=== PATIENT | male | born 1960 | race Caucasian/White ===

== ENCOUNTER → 2019-09-08 | Outpatient (CLI) | payer OTHER ==
[~2019-09-08] MED LIST: REGADENOSON 0.4 MG/5 ML SYRINGE IV ONE
--- NOTE | 2019-09-08 11:16 | ECHOF ---
Referral Reason:I10 Hypertension MEASUREMENTS -------- HEIGHT: 172.7 cm WEIGHT: 83.9 kg BP: 173/84 RVIDd: 2.9 cm (< 3.3) IVSd: 1.3 cm (0.6 - 1.1) LVIDd: 4.5 cm (3.9 - 5.3) LVPWd: 1.3 cm (0.6 - 1.1) IVSs: 1.8 cm LVIDs: 3.1 cm LVPWs: 1.9 cm LA Diam: 3.5 cm (2.7 - 3.8) LAESV Index (A-L): 15.25 ml/m Ao Diam: 3.2 cm (2.0 - 3.7) AV Cusp: 2.1 cm (1.5 - 2.6) MV EXCURSION: 14.230 mm (> 18.000) MV EF SLOPE: 55 mm/s (70 - 150) EPSS: 1.0 cm MV E Jayden: 0.49 m/s MV DecT: 89 ms MV A Jayden: 0.98 m/s MV E/A Ratio: 0.50 AR PHT: 838 ms FINDINGS -------- Sinus rhythm. This was a technically adequate study. The left ventricular size is normal. There is mild concentric left ventricular hypertrophy. Overa ll left ventricular systolic function is normal with, an EF between 55 - 60 %. The right ventricle is normal in size. Normal LA size by volume 22+/-6 ml/m2. The right atrial size is normal. Interatrial and interventricular septum intact. The aortic valve is trileaflet and appears structurally normal. There is mild aortic regurgitation. The mitral valve is normal. There is trace to mild mitral regurgitation. The tricuspid valve appears structurally normal. Mild tricuspid regurgitation present. Unable to estimate RVSP due to inadequate TR jet spectral doppler profile. There is no pulmonic regurgitation present. The aortic root size is normal. IVC Not well visulized. There is no pericardial effusion. CONCLUSIONS -------- 1. There is mild concentric left ventricular hypertrophy. 2. Overall left ventricular systolic function is normal with, an EF between 55 - 60 %. 3. Normal LA size by volume 22+/-6 ml/m2. 4. The aortic valve is trileaflet and appears structurally normal. 5. There is mild aortic regurgitation. 6. There is trace to mild mitral regurgitation. 7. Mild tricuspid regurgitation present. 8. There is no pericardial effusion. CARTON FILLER: Stefanie Atkins RDCS
--- NOTE | 2019-09-08 11:39 | NM ---
EXAMINATION TYPE: NM stress lexiscan cardiolite DATE OF EXAM: 09/08/2019 COMPARISON: NONE HISTORY: Pain TECHNIQUE: After the intravenous administration of 10.53 mCi Tc 99m Sestamibi - Cardiolite resting S PECT images acquired 50 minutes post injection. The patient received 0.4mg Lexiscan, 25.9 mCi Tc 99m Sestamibi - Stress images obtained [address] injection FINDINGS: Review of stress and rest SPECT images demonstrates fixed defect inferior wall which may reflect prio r insult versus attenuation artifact. There is worsening decreased perfusion involving the cardiac ap ex on stress images and stress-induced ischemia is not excluded. Gated analysis shows normal wall mot ion with an estimated left ventricular ejection fraction of 53 %. IMPRESSION: Correlate for stress-induced ischemia involving the cardiac apex.
--- NOTE | 2019-09-08 13:21 | EST ---
EXERCISE STRESS AGE: 59 SEX: M HT: 68" WT: 185 lbs. PROTOCOL: Lexiscan Cardiolite STAGE: DURATION OF EXERCISE: HEART RATE REST: 93 BLOOD PRESSURE REST: 160/71 MAXIMUM HEART RATE ACHIEVED: 116 MAXIMUM BLOOD PRESSURE: 169/81 85% MPHR: 136 100% MPHR: 160 METS: INDICATIONS: Hypertension CLINICAL INFORMATION: Baseline rhythm is sinus mechanism, rate of 93, normal axis and intervals, nonspecific ST-T wave changes. Baseline blood pressure of 160/71 mmHg. Patient received injection of Lexiscan. Electrocardiograph monitoring revealed occasional PVCs. There was no evidence of diagnostic ischemic ST deviation. Cardiolite was injected per protocol. CONCLUSION: 1. Nondiagnostic electrocardiograph stress testing. 2. Nuclear images will be reported separately. MMODL / IJN: [id number] /
== END | disposition home or self-care (01) ==
LOC: RADNMMAIN 08:54
PROVIDERS: ATTEND Family Medicine
DX: I08.3 Combined rheumatic disorders of mitral, aortic and tricuspid valves (principal); I10 Essential (primary) hypertension
CPT/HCPCS: 93017; 93306; 78452; A9500; J2785

== ENCOUNTER → 2019-10-07 | Outpatient (CLI) | payer OTHER ==
[2019-10-07 13:10] LABS: HCT 48.8 % (39.0-53.0); HGB 15.7 gm/dL (13.0-17.5); MCH 31.2 pg (25.0-35.0); MCHC 32.1 g/dL (31.0-37.0); Mean Platelet Volume 6.6; Platelet Count 360 k/uL (150-450); RBC 5.03 m/uL (4.30-5.90); RDW 12.9 % (11.5-15.5)
[2019-10-07 13:16] LABS: Potassium 4.4 mmol/L (3.5-5.1)
== END | disposition home or self-care (01) ==
LOC: LABPAT 12:34
PROVIDERS: ATTEND Internal Medicine Interventional Cardiology
DX: Z01.818 Encounter for other preprocedural examination (principal); R06.02 Shortness of breath
CPT/HCPCS: 36415; 80051; 82565; 84520; 85027

== ENCOUNTER 2019-10-11 09:23 | Day surgery (SDC) | payer OTHER ==
[2019-10-05 11:26] VITALS: BMI 28.1
[~2019-10-11 09:23] MED LIST changes: +ALPRAZolam 0.25 MG TAB PO PRN; +ALPRAZolam 0.5 MG TAB PO PRN; +ASPIRIN 325 MG TAB PO STA; +ATORVASTATIN 80 MG TAB PO STA; +NITROGLYCERIN SL TABS 0.4 MG TAB SUBLINGUAL PRN; -REGADENOSON 0.4 MG/5 ML SYRINGE IV ONE; +SODIUM CHLORIDE 0.9% 1,000 ML in EMPTY BAG 1 BAG IV ONE
[2019-10-11 10:02] VITALS: RESP 16; TEMP 97.5
[2019-10-11] MEDS ORDERED: SODIUM CHLORIDE 0.9% 1,000 ML IV ONE (10:02)
[2019-10-11] MEDS ORDERED: LIDOCAINE 1% INJ 10MG/ML (20 ML MDV) ONE (10:05)
[2019-10-11] MEDS ORDERED: HEPARIN SODIUM 1,000 UN/ML (10ML VL) ONE (10:05)
[2019-10-11] MEDS ORDERED: VERAPAMIL 2.5 MG/ML 2 ML AMP ONE (10:05)
[2019-10-11] MEDS ORDERED: fentaNYL (PF) 50 MCG/ML 2 ML AMP IVP ONE (10:53)
[2019-10-11] MEDS ORDERED: MIDAZOLAM 2 MG/2 ML VIAL IVP ONE ×2 (10:53→10:55)
[2019-10-11] MEDS ORDERED: LIDOCAINE 1% INJ 10MG/ML (20 ML MDV) SQ ONE (10:54)
[2019-10-11] MEDS ORDERED: fentaNYL (PF) 50 MCG/ML 2 ML AMP ONE (10:55)
[2019-10-11] MEDS: VERAPAMIL SYRINGE (5 MG/10 ML) INTRAARTER ONE ×2 (10:55→11:08)
[2019-10-11] MEDS ORDERED: HEPARIN SODIUM 1,000 UN/ML (10ML VL) IV ONE (11:01)
[2019-10-11] MEDS ORDERED: IOPAMIDOL-370 125ML BTL INJ ONE (11:08)
[2019-10-11] MEDS ORDERED: RX INFO: IV CONTRAST WAS GIVEN 1 EACH MISC MISCELLANE PRN (11:17)
[2019-10-11] MEDS ORDERED: SODIUM CHLORIDE 0.9% 1,000 ML IV SCH (11:30)
--- NOTE | 2019-10-11 12:55 | CC ---
CARDIAC CATHETERIZATION REPORT DATE OF SERVICE: October 11, 2019 PERFORMING PHYSICIAN: Gus Wilson MD. PROCEDURE PERFORMED: 1. Selective right and left coronary angiogram. 2. Left heart catheterization. INDICATION: This is a very pleasant 59-year-old gentleman with hypertension who was experiencing symptoms of chest discomfort and underwent myocardial perfusion imaging stress test and that revealed an apical ischemia. Because of that, a heart catheterization was advised. APPROACH: Right radial artery. COMPLICATION: None. LEVEL OF SEDATION: Moderate with sedation length of 15 minutes. PROCEDURE DESCRIPTION: After obtaining an informed consent, the patient was brought to the cardiac denture laboratory technician. The right radial artery was cannulated using micropuncture technique and a micropuncture wire passed easily then I placed a 6-[place] sheath in the right radial artery. At that point, I gave the patient 2 mg of verapamil IA and 10,000 units of heparin IV. Selective right and left coronary angiogram performed using JR4 and JL3.5 catheters. Left heart catheterization was performed using 6-[place] pigtail catheter. The procedure was completed without any complication. SELECTIVE CORONARY ANGIOGRAM: 1. The RCA is a large caliber vessel and is a dominant vessel. The RCA is angiographically normal. It bifurcates distally into PDA and PLV branches both appeared to be angiographically normal. 2. The left main is angiographically normal. It bifurcates into LCX and LAD. 3. The LCX is a large caliber vessel. It is a nondominant vessel. The LCX is angiographically normal. In the midportion gives rise into 3 OM branches both appeared to be angiographically normal. 4. The left anterior descending artery is a large caliber vessel. The LAD is angiographically normal. In the midportion gives rise into 2 diagonal branches, and all appeared to be angiographically normal. HEMODYNAMICS: The LVEDP is about 12-16 mmHg and no gradient was identified across the aortic valve. CONCLUSION: 1. Normal coronary angiogram. 2. Mildly elevated LVEDP. POSTPROCEDURE MANAGEMENT: 1. Medical treatment. 2. Follow up with the patient. MMODL / IJN: [id number] /
[2019-10-11 16:19] VITALS: BP 110/65; PULSE 60
== END 2019-10-11 16:21 | disposition home or self-care (01) ==
LOC: CATHCVL 09:23
PROVIDERS: ATTEND Internal Medicine Interventional Cardiology
DX: I20.0 Unstable angina (principal); I10 Essential (primary) hypertension; F17.220 Nicotine dependence, chewing tobacco, uncomplicated; Z88.2 Allergy status to sulfonamides; Z79.82 Long term (current) use of aspirin; Z79.899 Other long term (current) drug therapy; Z82.49 Family history of ischemic heart disease and other diseases of the circulatory system
CPT/HCPCS: 93458; C1769; C1894; J2250; J2001; J3010; J1644; Q9967

== ENCOUNTER → 2022-08-14 | Outpatient (CLI) | payer OTHER ==
--- NOTE | 2022-08-14 10:22 | XR ---
EXAMINATION TYPE: XR chest 2V DATE OF EXAM: 08/14/2022 COMPARISON: None INDICATION: Chest pain TECHNIQUE: Frontal and lateral views of the chest are obtained. FINDINGS: The heart size is normal. The pulmonary vasculature is normal. Some mild infiltrates silhouetting the lateral left diaphragm near the costophrenic angle. Correlate for atelectasis. IMPRESSION: 1. Minimal infiltrate at the lateral left base frontal projection. Correlate for atelectasis.
== END | disposition home or self-care (01) ==
LOC: RADXRMAIN 10:03
PROVIDERS: ATTEND Family Medicine
DX: J44.9 Chronic obstructive pulmonary disease, unspecified (principal); R91.8 Other nonspecific abnormal finding of lung field
CPT/HCPCS: 71046

== ENCOUNTER 2022-08-26 13:46 | Observation (INO) | payer OTHER ==
--- NOTE | 2022-08-26 14:33 | ED ---
SOB HPI - General Chief Complaint: Shortness of Breath Stated Complaint: SARAH Time Seen by Provider: 08/26/22 14:10 Source: patient, RN notes reviewed Mode of arrival: wheelchair Limitations: no limitations - History of Present Illness Initial Comments: This is a 62-year-old male who presents to the emergency department for shortness of breath. States that this started about a week ago. He initially saw his PCP, and states that he prescribed him with 3 inhalers, Symbicort, Spiriva, and Stioloto. Also started taking a z-pack. His PCP advised he stay in air conditioning as well. Patient states that he has been using these as instructed, however his breathing continues to worsen. Also reports chest pain, coughing, and dry heaving. Shortness of breath is worse at night and when lying flat. Denies any known history of asthma or COPD. Also denies any smoking history. Denies any fevers, chills, sore throat, palpitations, abdominal pain, diarrhea, or back pain. MD Complaint: shortness of breath, cough, chest pain Onset/Timin -: week(s) - Related Data Home Medications Medication Instructions Recorded Confirmed Felodipine [Plendil] 10 mg PO DAILY@1200 10/05/19 08/26/22 Nortriptyline [Pamelor] 50 mg PO DAILY@1200 10/05/19 08/26/22 Nortriptyline [Pamelor] 100 mg PO HS@0000 10/05/19 08/26/22 Omeprazole [PriLOSEC] 40 mg PO DAILY@1200 10/05/19 08/26/22 Azithromycin [Zithromax] See Taper PO DIRECTED 08/26/22 08/26/22 Budesonide/Formoterol Fumarate 2 puff INHALATION RT-BID@1200,0000 08/26/22 08/26/22 [Symbicort 160-4.5 Mcg Inhaler] Testosterone Cypionate 400 mg IM Q30D 08/26/22 08/26/22 [Depo-Testosterone] Tiotropium 2.5 Mcg/Puff [Spiriva 1 puff INHALATION RT-DAILY@1200 08/26/22 08/26/22 Respimat 2.5 Mcg] Tiotropium Br/Olodaterol HCl 1 puff INHALATION RT-DAILY@1800 08/26/22 08/26/22 [Stiolto Respimat Inhal [place]] Allergies Allergy/AdvReac Type Severity Reaction Status Date / Time Sulfa (Sulfonamide Allergy Rash/Hives Verified 08/26/22 17:27 Antibiotics) sulfamethoxazole Allergy Rash/Hives Verified 08/26/22 17:27 [From Bactrim] trimethoprim [From Bactrim] Allergy Rash/Hives Verified 08/26/22 17:27 Review of Systems ROS Statement: Those systems with pertinent positive or pertinent negative responses have been documented in the HPI. ROS Other: All systems not noted in ROS Statement are negative. Past Medical History Past Medical History: Chest Pain / Angina, GERD/Reflux, Hypertension, Osteoa rthritis (OA) Additional Past Medical History / Comment(s): chest pressure, fatigue History of Any Multi-Drug Resistant Organisms: None Reported Past Surgical History: Hernia Repair Past Anesthesia/Blood Transfusion Reactions: No Reported Reaction Past Psychological History: No Psychological Hx Reported Smoking Status: Never smoker Past Alcohol Use History: Occasional Past Drug Use History: None Reported General Exam Limitations: no limitations General appearance: alert, in no apparent distress Head exam: Present: atraumatic, normocephalic, normal inspection Respiratory exam: Present: normal lung sounds bilaterally. Absent: respiratory distress, wheezes, rales, rhonchi, stridor Cardiovascular Exam: Present: regular rate, normal rhythm, normal heart sounds. Absent: systolic murmur, diastolic murmur, rubs, gallop, clicks Neurological exam: Present: alert, oriented X3, CN II-XII intact Psychiatric exam: Present: normal affect, normal mood Skin exam: Present: warm, dry, intact, normal color. Absent: rash Course Vital Signs 08/26/22 08/26/22 08/26/22 13:48 14:01 14:25 Temperature 97.7 F Pulse Rate 109 H 98 Respiratory 18 22 24 Rate Blood Pressure 159/79 162/88 O2 Sat by Pulse 98 97 Oximetry 08/26/22 08/26/22 08/26/22 14:30 15:19 15:29 Temperature Pulse Rate 101 H 98 104 H Respiratory 22 Rate Blood Pressure 162/88 O2 Sat by Pulse Oximetry 08/26/22 08/26/22 08/26/22 15:41 15:51 17:03 Temperature Pulse Rate 106 H 106 H 112 H Respiratory 24 Rate Blood Pressure 151/77 O2 Sat by Pulse 99 Oximetry 08/26/22 17:10 Temperature Pulse Rate 103 H Respiratory 24 Rate Blood Pressure 137/89 O2 Sat by Pulse 98 Oximetry Medical Decision Making - Medical Decision Making This is a 62-year-old male who presents to the emergency department for difficulty breathing. Was pt. sent in by a medical professional or institution? @ -No Did you speak to anyone other than the patient for history? @ -No Did you review nursing and triage notes? @ -Yes, and I agree, it is accurate with regards to the patient's symptoms. Were old charts reviewed? @ -No Differential Diagnosis? @ -Differential Dyspnea: Coronary syndrome, arrhythmia, tamponade, asthma, COPD, pulmonary embolism, pneumonia, pneumothorax, pulmonary effusion, anaphylaxis, diabetic ketoacidosis, flailed chest, pulmonary contusion, diaphragmatic rupture, anemia, neuromuscular, this is not meant to be an all-inclusive list. EKG interpreted by me (3pts min.)? @ -EKG interpreted by me demonstrating the following: Sinus tachycardia. Ventricular rate 101 bpm, VT interval 140 ms, QRS duration 156 ms, QTC 433 ms. X-rays interpreted by me (1pt min.)? @ -Chest x-ray obtained, my interpretation identifies no localized consolid ations or infiltrates. CT interpreted by me (1pt min.)? @ -Not obtained U/S interpreted by me (1pt. min.)? @ -Not obtained What testing was considered but not performed? (CT, X-rays, U/S, labs)? Why? @ -None What meds were considered but not given? Why? @ -None Did you discuss the management of the patient with other professionals? @ -Yes, Dr. Martinez, who accepts the patient for admission. Did you reconcile home meds? @ -No Was smoking cessation discussed for >3mins.? @ -No Was critical care preformed (if so, how long)? @ -No Were there social determinants of health that impacted care today? How? (Homelessness, low income, unemployed, alcoholism, drug addiction, trans portation, low edu. Level, literacy, decrease access to med. care, usp, rehab)? @ -No Was there de-escalation of care discussed even if they declined? (Discuss DNR or withdrawal of care, Hospice)? @ -No What co-morbidities impacted this encounter? (DM, HTN, Smoking, COPD, CAD, Cancer, CVA, Hep., AIDS, mental health diagnosis, sleep apnea, morbid obesity)? @ -HTN Was patient admitted / discharged? @ -Admitted. Lab work obtained revealing erythrocytosis with a hemoglobin of 18.8 and hematocrit of 57.4. D-dimer and troponin negative. No actionable findings otherwise identified. Chest x-ray reveals mild right-sided diaphragmatic elevation, linear atelectasis at the right medial lung base, and a chronic pleural parenchymal density in the left lower lobe. He received a total of 2 DuoNeb breathing treatments. Patient had very minor improvement after each breathing treatment, but states that they wore off quickly. He continues to maintain heart rate of 100-120 bpm in the emergency department. While in the emergency department, he started to complain of headaches. He was given a dose of Toradol, which was not effective. He was then given a dose of Dilaudid, which was only moderately effective. When I went to reexamine the patient, he continued to complain that he was short of breath with chest pain. He also continued to be tachycardic. He then became very tearful and said that he was scared to go home. Patient admitted to medicine for further evaluation of shortness of breath and tachycardia. Pulmonology listed as consult. Undiagnosed new problem with uncertain prognosis? @ -None Drug Therapy requiring intensive monitoring for toxicity (Heparin, Nitro, Insulin, Cardizem)? @ -None Were any procedures done? @ -None Diagnosis/symptom? @ -Dyspnea, tachycardia, erythrocytosis Acute, or Chronic, or Acute on Chronic? @ -Acute Uncomplicated (without systemic symptoms) or Complicated (systemic symptoms)? @ -Complicated Side effects of treatment? @ -None Exacerbation, Progression, or Severe Exacerbation] @ -Not applicable Poses a threat to life or bodily function? @ -Yes This case was discussed in detail with the attending ED physician, Dr. Mack. Presentation, findings, and treatment plan discussed in detail as well. - Lab Data Result diagrams: 08/26/22 14:19 08/26/22 14:19 Lab Results 08/26/22 08/26/22 08/26/22 Range/Units 14:19 14:19 14:19 WBC 8.4 (3.8-10.6) k/uL RBC 5.72 (4.30-5.90) m/uL Hgb 18.8 H (13.0-17.5) gm/dL Hct 57.4 H* (39.0-53.0) % MCV 100.2 H (80.0-100.0) fL MCH 32.8 (25.0-35.0) pg MCHC 32.7 (31.0-37.0) g/dL RDW 14.6 (11.5-15.5) % Plt Count 238 (150-450) k/uL MPV 7.2 Neutrophils % 73 % Lymphocytes % 13 % Monocytes % 8 % Eosinophils % 5 % Basophils % 0 % Neutrophils # 6.1 (1.3-7.7) k/uL Lymphocytes # 1.1 (1.0-4.8) k/uL Monocytes # 0.7 (0-1.0) k/uL Eosinophils # 0.4 (0-0.7) k/uL Basophils # 0.0 (0-0.2) k/uL Macrocytosis Slight PT (9.0-12.0) sec INR (<1.2) APTT (22.0-30.0) sec D-Dimer (<0.60) mg/L FEU Sodium 137 (137-145) mmol/L Potassium 4.1 (3.5-5.1) mmol/L Chloride 105 (98-107) mmol/L Carbon Dioxide 18 L (22-30) mmol/L Anion Gap 14 mmol/L BUN 11 (9-20) mg/dL Creatinine 1.29 H (0.66-1.25) mg/dL Est GFR (CKD-EPI)AfAm 68 (>60 ml/min/1.73 sqM) Est GFR (CKD-EPI)NonAf 59 (>60 ml/min/1.73 sqM) Glucose 108 H (74-99) mg/dL Plasma Lactic Acid Malachi 1.9 (0.7-2.0) mmol/L Calcium 9.6 (8.4-10.2) mg/dL Total Bilirubin 0.8 (0.2-1.3) mg/dL AST 40 (17-59) U/L ALT 35 (4-49) U/L Alkaline Phosphatase 124 (38-126) U/L Troponin I (0.000-0.034) ng/mL NT-Pro-B Natriuret Pep pg/mL Total Protein 7.7 (6.3-8.2) g/dL Albumin 4.3 (3.5-5.0) g/dL Influenza Type A (PCR) (Not Detectd) Influenza Type B (PCR) (Not Detectd) RSV (PCR) (Not Detectd) SARS-CoV-2 (PCR) (Not Detectd) 08/26/22 08/26/22 08/26/22 Range/Units 14:19 14:19 14:19 WBC (3.8-10.6) k/uL RBC (4.30-5.90) m/uL Hgb (13.0-17.5) gm/dL Hct (39.0-53.0) % MCV (80.0-100.0) fL MCH (25.0-35.0) pg MCHC (31.0-37.0) g/dL RDW (11.5-15.5) % Plt Count (150-450) k/uL MPV Neutrophils % % Lymphocytes % % Monocytes % % Eosinophils % % Basophils % % Neutrophils # (1.3-7.7) k/uL Lymphocytes # (1.0-4.8) k/uL Monocytes # (0-1.0) k/uL Eosinophils # (0-0.7) k/uL Basophils # (0-0.2) k/uL Macrocytosis PT (9.0-12.0) sec INR (<1.2) APTT (22.0-30.0) sec D-Dimer (<0.60) mg/L FEU Sodium (137-145) mmol/L Potassium (3.5-5.1) mmol/L Chloride (98-107) mmol/L Carbon Dioxide (22-30) mmol/L Anion Gap mmol/L BUN (9-20) mg/dL Creatinine (0.66-1.25) mg/dL Est GFR (CKD-EPI)AfAm (>60 ml/min/1.73 sqM) Est GFR (CKD-EPI)NonAf (>60 ml/min/1.73 sqM) Glucose (74-99) mg/dL Plasma Lactic Acid Malachi (0.7-2.0) mmol/L Calcium (8.4-10.2) mg/dL Total Bilirubin (0.2-1.3) mg/dL AST (17-59) U/L ALT (4-49) U/L Alkaline Phosphatase (38-126) U/L Troponin I <0.012 (0.000-0.034) ng/mL NT-Pro-B Natriuret Pep 789 pg/mL Total Protein (6.3-8.2) g/dL Albumin (3.5-5.0) g/dL Influenza Type A (PCR) Not Detected (Not Detectd) Influenza Type B (PCR) Not Detected (Not Detectd) RSV (PCR) Not Detected (Not Detectd) SARS-CoV-2 (PCR) Not Detected (Not Detectd) 08/26/22 Range/Units 15:18 WBC (3.8-10.6) k/uL RBC (4.30-5.90) m/uL Hgb (13.0-17.5) gm/dL Hct (39.0-53.0) % MCV (80.0-100.0) fL MCH (25.0-35.0) pg MCHC (31.0-37.0) g/dL RDW (11.5-15.5) % Plt Count (150-450) k/uL MPV Neutrophils % % Lymphocytes % % Monocytes % % Eosinophils % % Basophils % % Neutrophils # (1.3-7.7) k/uL Lymphocytes # (1.0-4.8) k/uL Monocytes # (0-1.0) k/uL Eosinophils # (0-0.7) k/uL Basophils # (0-0.2) k/uL Macrocytosis PT 10.3 (9.0-12.0) sec INR 1.0 (<1.2) APTT 25.6 (22.0-30.0) sec D-Dimer <0.17 (<0.60) mg/L FEU Sodium (137-145) mmol/L Potassium (3.5-5.1) mmol/L Chloride (98-107) mmol/L Carbon Dioxide (22-30) mmol/L Anion Gap mmol/L BUN (9-20) mg/dL Creatinine (0.66-1.25) mg/dL Est GFR (CKD-EPI)AfAm (>60 ml/min/1.73 sqM) Est GFR (CKD-EPI)NonAf (>60 ml/min/1.73 sqM) Glucose (74-99) mg/dL Plasma Lactic Acid Malachi (0.7-2.0) mmol/L Calcium (8.4-10.2) mg/dL Total Bilirubin (0.2-1.3) mg/dL AST (17-59) U/L ALT (4-49) U/L Alkaline Phosphatase (38-126) U/L Troponin I (0.000-0.034) ng/mL NT-Pro-B Natriuret Pep pg/mL Total Protein (6.3-8.2) g/dL Albumin (3.5-5.0) g/dL Influenza Type A (PCR) (Not Detectd) Influenza Type B (PCR) (Not Detectd) RSV (PCR) (Not Detectd) SARS-CoV-2 (PCR) (Not Detectd) - Radiology Data Radiology results: report reviewed, image reviewed Disposition Clinical Impression: Dyspnea, Tachycardia, Erythrocytosis Disposition: ADMITTED IP TO THIS [facility] Referrals: Juan Pablo Mabry MD [Primary Care Provider] - 1-2 days
[2022-08-26 14:37] LABS: Basophils % (A) 0 %; Eosinophils # (A) 0.4 k/uL (0-0.7); Eosinophils % (A) 5 %; HGB 18.8 gm/dL (13.0-17.5); Lymphocytes # (A) 1.1 k/uL (1.0-4.8); Lymphocytes % (A) 13 %; MCH 32.8 pg (25.0-35.0); MCHC 32.7 g/dL (31.0-37.0); MCV 100.2 fL (80.0-100.0); Macrocytosis Slight; Mean Platelet Volume 7.2; Monocytes # (A) 0.7 k/uL (0-1.0); Monocytes % (A) 8 %; Neutrophils # (A) 6.1 k/uL (1.3-7.7); Neutrophils % (A) 73 %; Platelet Count 238 k/uL (150-450); RBC 5.72 m/uL (4.30-5.90); RDW 14.6 % (11.5-15.5); WBC 8.4 k/uL (3.8-10.6)
[2022-08-26 14:58] LABS: HCT 57.4 % (39.0-53.0)
[2022-08-26] MEDS ORDERED: IPRATROPIUM-ALBUTEROL 3 ML NEB INHALATION STA ×2 (15:04→15:36)
--- NOTE | 2022-08-26 15:14 | XR ---
EXAMINATION TYPE: XR chest 2V DATE OF EXAM: 08/26/2022 COMPARISON: 08/14/22 HISTORY: Shortness of breath TECHNIQUE: Frontal and lateral views of the chest are obtained. FINDINGS: Scattered senescent parenchymal changes noted. Hyperinflation compatible with COPD. Mild right-sided diaphragmatic elevation. Linear atelectasis right medial lung base. Chronic pleural- parenchymal density left lower lobe. Heart size is stable. Mediastinal structures are stable and grossly unremarkable. No evidence for hilar prominence. Degenerative changes dorsal spine. IMPRESSION: 1. Mild right-sided diaphragmatic elevation. Linear atelectasis right medial lung base. Chronic pleur al-parenchymal density left lower lobe.
[2022-08-26 15:28] LABS: ALT 35 U/L (4-49); AST 40 U/L (17-59); African American GFR (CKD) 68 (>60 ml/min/1.73 sqM); Albumin 4.3 g/dL (3.5-5.0); Alkaline Phosphatase 124 U/L (38-126); Anion Gap 14 mmol/L; Blood Urea Nitrogen 11 mg/dL (9-20); Calcium 9.6 mg/dL (8.4-10.2); Carbon Dioxide 18 mmol/L (22-30); Chloride 105 mmol/L (98-107); Glucose 108 mg/dL (74-99); Non-African American GFR(CKD) 59 (>60 ml/min/1.73 sqM); Potassium 4.1 mmol/L (3.5-5.1); Sodium 137 mmol/L (137-145); Total Bilirubin 0.8 mg/dL (0.2-1.3); Total Protein 7.7 g/dL (6.3-8.2)
[2022-08-26] MEDS ORDERED: KETOROLAC 15 MG/ML 1 ML VIAL IVP STA (15:34)
[2022-08-26 16:01] LABS: Partial Thromboplastin Time 25.6 sec (22.0-30.0); Prothrombin Time 10.3 sec (9.0-12.0)
[2022-08-26] MEDS ORDERED: HYDROmorphone 0.5 MG/0.5 ML SYRINGE IVP STA (16:58)
[2022-08-26] MEDS ORDERED: methylPREDNISolone SOD SUCCI 125 MG/2 ML VIAL IV STA ×2 (17:05→18:36)
[2022-08-26] MEDS ORDERED: NALOXONE 0.4 MG/ML 1 ML VIAL IV PRN (18:13)
[2022-08-26] MEDS ORDERED: ACETAMINOPHEN TAB 325 MG TAB PO PRN (18:13)
[2022-08-26] MEDS ORDERED: IBUPROFEN 400 MG TAB PO PRN (18:13)
[2022-08-26] MEDS ORDERED: MORPHINE SULFATE 4 MG/ML SYRINGE IV PRN (18:13)
[2022-08-26] MEDS ORDERED: KETOROLAC 15 MG/ML 1 ML VIAL IVP PRN (18:13)
[2022-08-26] MEDS ORDERED: FORMOTEROL FUMARATE 20 MCG/2 ML NEBU INHALATION SCH (20:00)
[2022-08-26] MEDS: IPRATROPIUM-ALBUTEROL 3 ML NEB INHALATION SCH (21:19)
[2022-08-26] MEDS: BUDESONIDE 1 MG/2 ML NEBU INHALATION SCH (21:21)
--- NOTE | 2022-08-26 22:14 | CT ---
EXAMINATION TYPE: CT soft tissue neck w con CT DLP: 348.3 mGycm, Automated exposure control for dose reduction was used. DATE OF EXAM: 08/26/2022 9:55 PM COMPARISON: None. CLINICAL INDICATION:Male, 62 years old with history of diff swallowing/choking in throat; PHH, dyspne a, dysphagia TECHNIQUE: Standard enhanced CT of the neck. Axial sections with coronal and sagittal reformats were obtained. Contrast used:80ml mL of Isovue 300 with IV Contrast, Oral contrast used: none. FINDINGS: Brain: Visualized portions are grossly unremarkable. Orbits: Unremarkable Sinuses: Grossly unremarkable. Spaces of the neck: The adenoids are enlarged which closely approximate the soft palate. Airway to th e oropharynx is patent. The palatine tonsils are symmetric. No evidence for lymphadenopathy. Musculoskeletal: No acute osseous pathology. Degenerative disc disease changes of the visualized spin e are present. Lymph nodes: Multiple nonenlarged lymph nodes are seen along both anterior chains of the neck. Vascular structures: Visualized major arteries are patent without evidence of aneurysm. Thoracic Inlet/airway: Airway is patent. The lung apices are clear. Soft tissues/Thyroid: Thyroid and remainder of the soft tissues are unremarkable. Other: none. IMPRESSION Narrowed airway through the nasopharynx secondary to enlargement of the adenoids in close approximati on to the soft palate. The oropharynx airway is patent. No evidence for mass. Consider barium swallow with speech pathology.
[2022-08-26] MEDS: TOPIRAMATE 25 MG TAB PO SCH (23:07)
[2022-08-26] MEDS: NORTRIPTYLINE 25 MG CAP PO SCH (23:07)
--- NOTE | 2022-08-26 23:18 | P.HPIM ---
History of Present Illness H&P Date: 08/26/22 Chief Complaint: Short of breath I'm rounding for Dr. Juan Pablo Mabry. 62-year-old patient who follows with Dr. Juan Pablo Mabry. Patient had gone to see Dr. Mabry about a week ago with some shortness of breath was given inhalers. Not responding. Patient now presents with Multiple symptoms. Has been increasingly short of breath. Occasional cough. He feels sometimes throat is swollen. Patient's had chronic headache for years which is progressively getting much worse. Occasionally gets blurry vision. He thinks he might sometimes have trouble with swallowing. Is also hurting all over. Nonsmoker. Patient rather anxious. Patient also notices a raspiness in his voice. Breathing is better after getting bronchodilators steroids. Review of systems: GEN.: Tired EYES: Occasional blurring] HEENT: Acute on chronic headache] NECK: None RESPIRATORY: As above CARDIOVASCULAR: No chest pain GASTROINTESTINAL: None GENITOURINARY: None MUSCULOSKELETAL: Joint pains LYMPHATICS: None HEMATOLOGICAL: None PSYCHIATRY: None NEUROLOGICAL: As above Past medical history to include: GERD, hypertension, osteoarthritis, Social history: Patient used to drink anywhere from 12-15 beers at night. For over 12 years. About 2 years ago patient cutback couple of beers at night. This is his ex- . Does not smoke. Retired. Physical examination: VITAL SIGNS: 97.9, 109, 18, 159/79, 98% room air GENERAL: BMI 27.4, reclining in bed anxious. EYES: Pupils equal. Conjunctiva normal. HEENT: External appearance of nose and ears normal, oral cavity grossly normal. NECK: JVD not raised; masses not palpable. HEART: First and second heart sounds are normal; no edema. LUNGS:[ Respiratory rate normal; fair entry. ABDOMEN: Soft, nontender, liver spleen not palpable, no masses palpable. PSYCH: Alert and oriented x3; mood and affect anxiousl. MUSCULOSKELETAL:No Clubbing/cyanosis;muscles-grossly intact NEUROLOGICAL: Cranial nerves grossly intact; no facial asymmetry, power and sensation grossly intact. LYMPHATICS: No lymph nodes palpable in the axilla and neck INVESTIGATIONS, reviewed in the clinical context: White count 8.4 hemoglobin 18.8 hematocrit 57.4 platelets 238 potassium 4.1 BUN 11 creatinine 1.29 Troponin I less than 0.0122 ProBNP 789 Influenza type A, type B, RSV, COVID-19: Not detected EKG tracing personally reviewed by me-heart rate 101. Right bundle-branch block. Nonspecific T-wave changes. Chest x-ray film personally reviewed by me-possibly chronic changes Computed tomography scan, soft tissue of the neck: Denies enlargement closely approximate the soft palate. Intermittent oropharynx is patent. Multiple nonenlarged lymph node seen along the anterior chain of the neck. Assessment and plan: -Possible acute asthma exacerbation and a nonsmoker. Bronchodilators. Steroids. IV. -Patient complains of change in voice and intermittent trouble swallowing. Enlarged adenoids and computed tomography scan of the neck. We will do a barium swallow. -Acute on chronic headache. Start Topamax 25 mg twice a day. Consult neurology. Computed tomography scan of the brain without and without contrast. -Possible polycythemia. IV fluids. Repeat CBC in the morning. Consult hematology. -Abnormal creatinine. IV fluids. Repeat BMP in the morning. -Anxiety Pamelor -GERD PPI -Essential hypertension Amlodipine 10 mg a day Care discussed at length with the patient. Consultation neurology. Pulmonary. Past Medical History Past Medical History: Chest Pain / Angina, GERD/Reflux, Hypertension, Osteoarthritis (OA) Additional Past Medical History / Comment(s): chest pressure, fatigue History of Any Multi-Drug Resistant Organisms: None Reported Past Surgical History: Hernia Repair Additional Past Surgical History / Comment(s): L groin hernia Past Anesthesia/Blood Transfusion Reactions: No Reported Reaction Past Psychological History: No Psychological Hx Reported Smoking Status: Never smoker Past Alcohol Use History: Occasional Additional Past Alcohol Use History / Comment(s): used to drink 6 or more beers daily, down to 2-3 beers per day Past Drug Use History: None Reported Medications and Allergies Home Medications Medication Instructions Recorded Confirmed Type Felodipine [Plendil] 10 mg PO DAILY@1200 10/05/19 08/26/22 History Nortriptyline [Pamelor] 50 mg PO DAILY@1200 10/05/19 08/26/22 History Nortriptyline [Pamelor] 100 mg PO HS@0000 10/05/19 08/26/22 History Omeprazole [PriLOSEC] 40 mg PO DAILY@1200 10/05/19 08/26/22 History Azithromycin [Zithromax] See Taper PO DIRECTED 08/26/22 08/26/22 History Budesonide/Formoterol Fumarate 2 puff INHALATION RT-BID@1200,0000 08/26/22 08/26/22 History [Symbicort 160-4.5 Mcg Inhaler] Testosterone Cypionate 400 mg IM Q30D 08/26/22 08/26/22 History [Depo-Testosterone] Tiotropium 2.5 Mcg/Puff [Spiriva 1 puff INHALATION RT-DAILY@1200 08/26/22 08/26/22 History Respimat 2.5 Mcg] Tiotropium Br/Olodaterol HCl 1 puff INHALATION RT-DAILY@1800 08/26/22 08/26/22 History [Stiolto Respimat Inhal [place]] Allergies Allergy/AdvReac Type Severity Reaction Status Date / Time Sulfa (Sulfonamide Allergy Rash/Hives Verified 08/26/22 17:27 Antibiotics) sulfamethoxazole Allergy Rash/Hives Verified 08/26/22 17:27 [From Bactrim] trimethoprim [From Bactrim] Allergy Rash/Hives Verified 08/26/22 17:27 Physical Exam Vitals: Vital Signs Temp Pulse Pulse Resp BP BP Pulse Ox 08/26/22 22:12 98.3 F 108 H 18 171/89 97 08/26/22 21:35 108 H 08/26/22 21:34 108 H 08/26/22 21:22 104 H 08/26/22 20:55 97.9 F 108 H 16 159/87 96 08/26/22 18:22 105 H 16 160/87 98 08/26/22 17:10 103 H 24 137/89 98 08/26/22 17:03 112 H 24 151/77 99 08/26/22 15:51 106 H 08/26/22 15:41 106 H 08/26/22 15:29 104 H 08/26/22 15:19 98 08/26/22 14:30 101 H 22 162/88 08/26/22 14:25 98 24 162/88 97 08/26/22 14:01 22 08/26/22 13:48 97.7 F 109 H 18 159/79 98 Intake and Output 08/26/22 08/26/22 08/27/22 14:59 22:59 06:59 Other: # Voids 2 Weight 81.647 kg 81.647 kg Results CBC & Chem 7: 08/26/22 14:19 08/26/22 14:19 Labs: Abnormal Lab Results - Last 24 Hours (Table) 08/26/22 08/26/22 Range/Units 14:19 14:19 Hgb 18.8 H (13.0-17.5) gm/dL Hct 57.4 H* (39.0-53.0) % MCV 100.2 H (80.0-100.0) fL Carbon Dioxide 18 L (22-30) mmol/L Creatinine 1.29 H (0.66-1.25) mg/dL Glucose 108 H (74-99) mg/dL Thrombosis Risk Factor Assmnt - Choose All That Apply Any of the Below Risk Factors Present?: Yes Each Factor Represents 1 point: Abnormal pulmonary function (COPD), Obesity (BMI >25) Other Risk Factors: Yes Each Risk Factor Represents 2 Points: Age 61-74 years Other congenital or acquired thrombophilia - If yes, enter type in comment: No Thrombosis Risk Factor Assessment Total Risk Factor Score: 4 Thrombosis Risk Factor Assessment Level: Moderate Risk
[2022-08-26] MEDS ORDERED: LACTULOSE 20 GM/30 ML CUP PO PRN (23:19)
[2022-08-26] MEDS ORDERED: TEMAZEPAM 15 MG CAP PO PRN (23:19)
[2022-08-26] MEDS ORDERED: LORazepam 0.5 MG TAB PO PRN (23:19)
[2022-08-26] MEDS ORDERED: CALCIUM CARBONATE 500 MG CHEWABLE PO PRN (23:19)
[2022-08-26] MEDS ORDERED: ONDANSETRON 4 MG/2 ML VIAL IVP PRN (23:19)
[2022-08-27] MEDS ORDERED: methylPREDNISolone SOD SUCCI 40 MG/ML 1 ML VIAL IV SCH
[2022-08-27] MEDS: IPRATROPIUM-ALBUTEROL 3 ML NEB INHALATION SCH ×7 (00:16→23:23)
[2022-08-27] MEDS: SODIUM CHLORIDE 0.9% 1,000 ML IV SCH ×3 (01:03→18:48)
[2022-08-27 05:23] LABS: Glucose,Whole Blood 144 mg/dL (70-110)
--- NOTE | 2022-08-27 07:48 | P.CNPUL ---
History of Present Illness Consult date: 08/27/22 Requesting physician: Kyara Matos Reason for consult: dyspnea, cough Chief complaint: Shortness of breath and cough History of present illness: I am seeing this patient in new consultation today 08/27/2022 for progressive dyspnea and persistent nonproductive cough. Patient is a 62-year-old male with past medical history significant for hypertension, GERD, osteoarthritis. Patient presented to the emergency room yesterday afternoon complaining of progressively worsening shortness of breath and a nonproductive cough that reportedly started approximately 5-6 days ago. Patient did go to his primary care provider Dr. Mabry on July for similar complaints. The patient was given a combination of Spiriva and Symbicort and sent home. There was also Stiolto along with his other inhalers. The patient did have some old azithromycin that was prescribed to him back in February,, and he did take 2 tablets before coming into the emergency room yesterday afternoon. He denies any history of asthma or COPD. He denies any smoking history. He denies any sick contacts. He denies fevers, chills, chest pain, hemoptysis. Patient is currently lying in bed, on 2 L/m nasal cannula, in no acute distress. He is oxygenating at 99%, and this could probably be weaned off. Chest x-ray on arrival showed mild right-sided diaphragmatic elevation, linear atelectasis at the right medial lung base, and chronic pleural/parenchymal density of the left lower lobe. CT of the soft tissue of the neck with contrast was ordered because of subjective feeling of throat tightness and hoarse voice, which showed a narrowed airway of the nasopharynx secondary to enlargement of the adenoids with a patent oropharynx. Patient also reports ongoing intermittent headaches and blurred vision, and a follow-up brain CTA was ordered. CBC on arrival shows an RBC count of 8.4, hemoglobin 18.8, hematocrit 57.4, platelets 238. Shows sodium 137, potassium 4.1, chloride 105, serum bicarb 18, BUN 11, creatinine 1.29, glucose 108. Normal saline is infusing at 40 mL per hour. Lactic acid level was 1.9. Troponins were low. NT proBNP 789. Negative for influenza, RSV, COVID-19. Patient is currently receiving a combination of DuoNeb's, Pulmicort, and IV Solu-Medrol. He is afebrile. Vital signs are stable. Review of Systems REVIEW OF SYSTEMS: CONSTITUTIONAL: Denies any recent significant weight loss or weight gain. EYES: Admits occasional bilateral blurred vision EARS, NOSE, MOUTH, THROAT: Admits intermittent headaches, denies sore throat. CARDIOVASCULAR: Denies chest pain, palpitations or syncopal episodes. RESPIRATORY: See HPI GASTROINTESTINAL: Denies change in appetite, abdominal pain, nausea and vomiting, or diarrhea GENITOURINARY: Denies hematuria, denies infections. MUSKULOSKELETAL: Denies pain, denies swelling. INTEGUMENTARY: Denies rash, denies eczema. NEUROLOGICAL: Denies recent memory loss, no recent seizure activity. PSYCHIATRIC: Denies anxiety, denies depression. HEMATOLOGIC/LYMPHATIC: Denies anemia, denies enlarged lymph node Past Medical History Past Medical History: Chest Pain / Angina, GERD/Reflux, Hypertension, Osteoarthritis (OA) Additional Past Medical History / Comment(s): chest pressure, fatigue History of Any Multi-Drug Resistant Organisms: None Reported Past Surgical History: Hernia Repair Additional Past Surgical History / Comment(s): L groin hernia Past Anesthesia/Blood Transfusion Reactions: No Reported Reaction Past Psychological History: No Psychological Hx Reported Smoking Status: Never smoker Past Alcohol Use History: Occasional Additional Past Alcohol Use History / Comment(s): used to drink 6 or more beers daily, down to 2-3 beers per day Past Drug Use History: None Reported Medications and Allergies Home Medications Medication Instructions Recorded Confirmed Type Felodipine [Plendil] 10 mg PO DAILY@1200 10/05/19 08/26/22 History Nortriptyline [Pamelor] 50 mg PO DAILY@1200 10/05/19 08/26/22 History Nortriptyline [Pamelor] 100 mg PO HS@0000 10/05/19 08/26/22 History Omeprazole [PriLOSEC] 40 mg PO DAILY@119910/05/19 08/26/22 History Azithromycin [Zithromax] See Taper PO DIRECTED 08/26/22 08/26/22 History Budesonide/Formoterol Fumarate 2 puff INHALATION RT-BID@1200,0000 08/26/22 08/26/22 History [Symbicort 160-4.5 Mcg Inhaler] Testosterone Cypionate 400 mg IM Q30D 08/26/22 08/26/22 History [Depo-Testosterone] Tiotropium 2.5 Mcg/Puff [Spiriva 1 puff INHALATION RT-DAILY@1200 08/26/22 08/26/22 History Respimat 2.5 Mcg] Tiotropium Br/Olodaterol HCl 1 puff INHALATION RT-DAILY@1800 08/26/22 08/26/22 History [Stiolto Respimat Inhal [place]] Allergies Allergy/AdvReac Type Severity Reaction Status Date / Time Sulfa (Sulfonamide Allergy Rash/Hives Verified 08/26/22 17:27 Antibiotics) sulfamethoxazole Allergy Rash/Hives Verified 08/26/22 17:27 [From Bactrim] trimethoprim [From Bactrim] Allergy Rash/Hives Verified 08/26/22 17:27 Physical Exam Vitals: Vital Signs Temp Pulse Pulse Resp BP BP Pulse Ox 08/27/22 05:21 97.7 F 117 H 20 137/68 99 08/27/22 04:03 108 H 08/27/22 03:50 110 H 08/27/22 02:00 98.0 F 110 H 18 137/74 98 08/27/22 00:28 106 H 08/27/22 00:16 108 H 08/26/22 22:12 98.3 F 108 H 18 171/89 97 08/26/22 21:45 108 H 08/26/22 21:35 108 H 08/26/22 21:34 108 H 08/26/22 21:22 104 H 08/26/22 20:55 97.9 F 108 H 16 159/87 96 08/26/22 18:22 105 H 16 160/87 98 08/26/22 17:10 103 H 24 137/89 98 08/26/22 17:03 112 H 24 151/77 99 08/26/22 15:51 106 H 08/26/22 15:41 106 H 08/26/22 15:29 104 H 08/26/22 15:19 98 08/26/22 14:30 101 H 22 162/88 08/26/22 14:25 98 24 162/88 97 08/26/22 14:01 22 08/26/22 13:48 97.7 F 109 H 18 159/79 98 Intake and Output 08/26/22 08/27/2223 22:59 06:59 14:59 Other: # Voids 2 1 Weight 81.647 kg GENERAL EXAM: Alert, 62-year-old white male appearing stated age, comfortable in no apparent distress. HEAD: Normocephalic and atraumatic EYES: Normal reaction of pupils, equal size. NOSE: Clear with pink turbinates. THROAT: No erythema or exudates. NECK: No masses, no JVD. CHEST: No chest wall deformity. LUNGS: Equal air entry with no crackles, wheeze, rhonchi or dullness. On 2 L/m nasal cannula. No conversational dyspnea or accessory muscle use.. CVS: S1 and S2 normal with no audible murmur, regular rhythm. No extra heart sounds ABDOMEN: No hepatosplenomegaly, active bowel sounds, no guarding or rigidity. SPINE: No scoliosis or deformity SKIN: No rashes CENTRAL NERVOUS SYSTEM: No focal deficits, tone is normal in all 4 extremities. EXTREMITIES: There is no peripheral edema, clubbing, or cyanosis. Peripheral pulses are intact. Results - Laboratory Findings CBC and BMP: 08/26/22 14:19 08/26/22 14:19 PT/INR, D-dimer PT 10.3 sec (9.0-12.0) 08/26/22 15:18 INR 1.0 (<1.2) 08/26/22 15:18 D-Dimer <0.17 mg/L FEU (<0.60) 08/26/22 15:18 Abnormal lab findings: Abnormal Labs 08/26/22 08/26/22 08/27/22 14:19 14:19 05:21 Hgb 18.8 H Hct 57.4 H* MCV 100.2 H Carbon Dioxide 18 L Creatinine 1.29 H Glucose 108 H POC Glucose (mg/dL) 144 H - Diagnostic Findings Chest x-ray: image reviewed Assessment and Plan Assessment: Acute hypoxemic respiratory failure, currently on 2 L/m nasal cannula, possibly secondary to acute bronchitis. Chest x-ray on arrival did not reveal any acute developing infiltrates or pneumonia. It did show mild right-sided diaphragmatic elevation, linear atelectasis at the right medial lung base, and chronic pleural/parenchymal density of the left lower lobe. Negative for influenza, RSV, COVID-19 Essential hypertension Possible acute kidney injury, creatinine 1.29, limited prior results for comparison. Polycythemia GERD without esophagitis Osteoarthritis Denies smoking history Plan: Patient's medications, labs, chest x-ray reviewed Continue supplemental oxygen, currently on 2 L/m nasal cannula with an SPO2 of 99%, and this can be weaned off as tolerated Continue bronchodilators and IV Solu-Medrol Add Robitussin-DM as antitussive Check procalcitonin level Normal saline infusing at 40 ml/hr. We will continue to follow I have personally seen and examined the patient, performed the documentation and the assessment and plan as written. Number of minutes spent on the visit:20 Time with Patient: Greater than 30
[2022-08-27] MEDS: BUDESONIDE 1 MG/2 ML NEBU INHALATION SCH ×2 (07:49→19:39)
[2022-08-27] MEDS: TOPIRAMATE 25 MG TAB PO SCH ×2 (08:51→20:14)
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
[2022-08-27] MEDS: ENOXAPARIN 40 MG/0.4 ML SYRINGE SQ SCH (10:23)
[2022-08-27] MEDS: guaiFENesin-DM 100-10MG/5ML 10 ML CUP PO SCH ×3 (10:23→20:14)
[2022-08-27] MEDS ORDERED: methylPREDNISolone SOD SUCCI 125 MG/2 ML VIAL IV SCH (12:00)
[2022-08-27] MEDS: PANTOPRAZOLE 40 MG TABLET PO SCH (12:25)
[2022-08-27] MEDS: NORTRIPTYLINE 25 MG CAP PO SCH ×2 (12:25→22:58)
[2022-08-27] MEDS: amLODIPine 10 MG TAB PO SCH (12:25)
--- NOTE | 2022-08-27 13:17 | P.CONS ---
History of Present Illness - Reason for Consult Consult date: 08/27/22 polycythemia - History of Present Illness The patient is a 62-year-old white male, with overall well controlled medical problems at baseline. The patient states that he started experiencing shortness of breath, about 5-6 days ago. This was progressive in nature, and accompanied with feeling of tightness in the throat, and a nonproductive cough. The patient did not respond well to outpatient therapy, and was therefore sent in to the ER, leading to this admission. On admission hemoglobin was 18.8 due to which twyla tology consult was placed with Review of labs and the EMR show hemoglobin of 15.6 in 2019. The patient and any prior history of blood related problems of malignancy. He does not have any prior history of chronic lung disease. He denies any smoking personally, or any significant secondhand smoke exposure. He is not aware of having any issues with smoking. No history of any diuretic use, significant consumption of beer, or caffeine. He states that he has been getting testosterone injections, prescribed by his PCP over the past year. Chest x-ray showed some atelectasis and mild chronic changes. Computed tomography scan of the neck showed some narrowing of the upper airway due to belinda noids. CT chest has been ordered, with results pending. Review of Systems Constitutional: Reports fatigue Eyes: denies blurred vision, denies pain Ears: deny: decreased hearing, ear discharge, earache, tinnitus Ears, nose, mouth and throat: Reports neck fullness/pressure Cardiovascular: Reports shortness of breath Respiratory: Reports cough Gastrointestinal: Denies abdominal pain, Denies diarrhea, Denies nausea, Denies vomiting Genitourinary: Reports as per HPI Musculoskeletal: Denies myalgias Integumentary: Denies pruritus, Denies rash Neurological: Reports weakness Psychiatric: Denies anxiety, Denies depression Endocrine: Reports as per HPI (On testosterone supplementation), Reports fatigue Hematologic/Lymphatic: Reports as per HPI Past Medical History Past Medical History: Chest Pain / Angina, GERD/Reflux, Hypertension, Osteoarthritis (OA) Additional Past Medical History / Comment(s): chest pressure, fatigue History of Any Multi-Drug Resistant Organisms: None Reported Past Surgical History: Hernia Repair Additional Past Surgical History / Comment(s): L groin hernia Past Anesthesia/Blood Transfusion Reactions: No Reported Reaction Past Psychological History: No Psychological Hx Reported Smoking Status: Never smoker Past Alcohol Use History: Occasional Additional Past Alcohol Use History / Comment(s): used to drink 6 or more beers daily, down to 2-3 beers per day Past Drug Use History: None Reported Medications and Allergies Home Medications Medication Instructions Recorded Confirmed Type Felodipine [Plendil] 10 mg PO DAILY@1200 10/05/19 08/26/22 History Nortriptyline [Pamelor] 50 mg PO DAILY@1200 10/05/19 08/26/22 History Nortriptyline [Pamelor] 100 mg PO HS@0000 10/05/19 08/26/22 History Omeprazole [PriLOSEC] 40 mg PO DAILY@1200 10/05/19 08/26/22 History Azithromycin [Zithromax] See Taper PO DIRECTED 08/26/22 08/26/22 History Budesonide/Formoterol Fumarate 2 puff INHALATION RT-BID@1200,0000 08/26/22 08/26/22 History [Symbicort 160-4.5 Mcg Inhaler] Testosterone Cypionate 400 mg IM Q30D 08/26/22 08/26/22 History [Depo-Testosterone] Tiotropium 2.5 Mcg/Puff [Spiriva 1 puff INHALATION RT-DAILY@1200 08/26/22 08/26/22 History Respimat 2.5 Mcg] Tiotropium Br/Olodaterol HCl 1 puff INHALATION RT-DAILY@1800 08/26/22 08/26/22 History [Stiolto Respimat Inhal [place]] Allergies Allergy/AdvReac Type Severity Reaction Status Date / Time Sulfa (Sulfonamide Allergy Rash/Hives Verified 08/26/22 17:27 Antibiotics) sulfamethoxazole Allergy Rash/Hives Verified 08/26/22 17:27 [From Bactrim] trimethoprim [From Bactrim] Allergy Rash/Hives Verified 08/26/22 17:27 Physical Exam Vitals: Vital Signs Temp Pulse Pulse Resp BP BP Pulse Ox 08/27/22 11:29 102 H 08/27/22 11:20 100 08/27/22 08:10 98 08/27/22 08:00 107 H 08/27/22 07:49 96 95 08/27/22 07:00 97.8 F 107 H 18 163/85 95 08/27/22 05:21 97.7 F 117 H 20 137/68 99 08/27/22 04:03 108 H 08/27/22 03:50 110 H 08/27/22 02:00 98.0 F 110 H 18 137/74 98 08/27/22 00:28 106 H 08/27/22 00:16 108 H 08/26/22 22:12 98.3 F 108 H 18 171/89 97 08/26/22 21:45 108 H 08/26/22 21:35 108 H 08/26/22 21:34 108 H 08/26/22 21:22 104 H 08/26/22 20:55 97.9 F 108 H 16 159/87 96 08/26/22 18:22 105 H 16 160/87 98 08/26/22 17:10 103 H 24 137/89 98 08/26/22 17:03 112 H 24 151/77 99 08/26/22 15:51 106 H 08/26/22 15:41 106 H 08/26/22 15:29 104 H 08/26/22 15:19 98 08/26/22 14:30 101 H 22 162/88 08/26/22 14:25 98 24 162/88 97 08/26/22 14:01 22 08/26/22 13:48 97.7 F 109 H 18 159/79 98 Intake and Output 08/26/22 08/27/22 08/27/22 22:59 06:59 14:59 Intake Total 540 Balance 540 Intake: Oral 540 Other: # Voids 2 1 Weight 81.647 kg - Constitutional General appearance: no acute distress - EENT Eyes: EOMI, PERRLA ENT: hearing grossly normal, normal oropharynx - Neck Neck: no lymphadenopathy - Respiratory Respiratory: bilateral: CTA, prolonged expiration - Cardiovascular Rhythm: regular Heart sounds: normal: S1, S2 - Gastrointestinal General gastrointestinal: normal bowel sounds, soft - Integumentary Integumentary: normal - Neurologic Neurologic: CNII-XII intact - Musculoskeletal Musculoskeletal: generalized weakness, strength equal bilaterally - Psychiatric Psychiatric: A&O x's 3, appropriate affect Results CBC & Chem 7: 08/26/22 14:19 08/26/22 14:19 Labs: Abnormal Lab Results - Last 24 Hours (Table) 07/03/23 07/03/23 07/04/23 Range/Units 14:19 14:19 05:21 Hgb 18.8 H (13.0-17.5) gm/dL Hct 57.4 H* (39.0-53.0) % MCV 100.2 H (80.0-100.0) fL Carbon Dioxide 18 L (22-30) mmol/L Creatinine 1.29 H (0.66-1.25) mg/dL Glucose 108 H (74-99) mg/dL POC Glucose (mg/dL) 144 H (70-110) mg/dL Comments: CT neck report reviewed EKG image and report reviewed Chest x-ray: report reviewed Assessment and Plan (1) Polycythemia Narrative/Plan: The patient is not aware of any previous issues in this regard. His respiratory issues appear to be acute. There is no known diagnosis of pre- existing chronic lung disease, or snoring. 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 - The above was discussed with the patient. - Check erythropoietin level. Additional MPD mutations as an outpatient - DVT prophylaxis - No known benefit from doing phlebotomy acutely, especially secondary polycythemia is most likely - It was discussed that in cases of secondary polycythemia, reduction of the hemoglobin primarily, such as with phlebotomy, does not improve any mortality or morbidity risk, since that is related to the underlying cause. We discussed that testosterone use is associated with increased risk of thrombotic events. This would not be affected by normalizing his hemoglobin if he continues on testosterone. He stated that he does not feel significantly different on that, and was therefore advised to discuss with his PCP about discontinuing it. Current Visit: Yes Status: Acute Code(s): D75.1 - SECONDARY POLYCYTHEMIA SNOMED Code(s): 299972786 (2) Dyspnea Narrative/Plan: This is felt to be probably related to bronchitis. A CT chest is pending to rule out PE. Continue treatment per pulmonary medicine Current Visit: Yes Status: Acute Code(s): R06.00 - DYSPNEA, UNSPECIFIED SNOMED Code(s): 234989211
[2022-08-27 14:01] LABS: African American GFR (CKD) 48 (>60 ml/min/1.73 sqM); Anion Gap 14 mmol/L; Blood Urea Nitrogen 20 mg/dL (9-20); Calcium 9.1 mg/dL (8.4-10.2); Carbon Dioxide 20 mmol/L (22-30); Chloride 106 mmol/L (98-107); Glucose 106 mg/dL (74-99); Non-African American GFR(CKD) 41 (>60 ml/min/1.73 sqM); Potassium 3.9 mmol/L (3.5-5.1); Sodium 140 mmol/L (137-145)
[2022-08-27 14:08] LABS: Basophils % (A) 0 %; Eosinophils % (A) 0 %; HCT 52.6 % (39.0-53.0); HGB 17.3 gm/dL (13.0-17.5); Lymphocytes # (A) 0.8 k/uL (1.0-4.8); Lymphocytes % (A) 5 %; MCH 32.9 pg (25.0-35.0); MCHC 32.9 g/dL (31.0-37.0); Macrocytosis Slight; Monocytes # (A) 1.3 k/uL (0-1.0); Monocytes % (A) 8 %; Neutrophils # (A) 13.5 k/uL (1.3-7.7); Neutrophils % (A) 86 %; Platelet Count 303 k/uL (150-450); RBC 5.26 m/uL (4.30-5.90); RDW 14.6 % (11.5-15.5); WBC 15.6 k/uL (3.8-10.6)
[2022-08-27] MEDS: Acetaminophen-Codeine 300-30mg TAB PO PRN (15:39)
--- NOTE | 2022-08-27 17:47 | CT ---
EXAMINATION TYPE: CT chest wo con DATE OF EXAM: 08/27/2022 COMPARISON: None HISTORY: Dyspnea CT DLP: 751.8 mGycm, Automated exposure control for dose reduction was used. CONTRAST: Performed injected with 0 mL of Isovue 300. TECHNIQUE: Axial images were obtained at 5 mm thick sections. Reconstructed images are reviewed on [employer] computer in the coronal plane. FINDINGS: Portion of the thyroid visualized is normal. There is some streak opacities in the posterior right lung base. Correlate for atelectasis. Pneumonia could be considered within the differential. No enlarged mediastinal or hilar adenopathy is evident. The ascending aorta diameter at the level o f the main pulmonary artery is 3.1 cm. The main pulmonary artery diameter at the bifurcation is 2.[address] sections are obtained through the upper abdomen. Bilateral renal cysts are present. IMPRESSIONS: 1. Atelectasis versus pneumonia posterior right lung base. 2. Bilateral renal cysts
--- NOTE | 2022-08-27 21:45 | P.PN ---
Progress Note - Text Progress Note Date: 08/27/22 Chief Complaint: Short of breath I'm rounding for Dr. Juan Pablo Mabry. 62-year-old patient who follows with Dr. Juan Pablo Mabry. Patient had gone to see Dr. Marby about a week ago with some shortness of breath was given inhalers. Not responding. Patient now presents with Multiple symptoms. Has been increasingly short of breath. Occasional cough. He feels sometimes throat is swollen. Patient's had chronic headache for years which is progressively getting much worse. Occasionally gets blurry vision. He thinks he might sometimes have trouble with swallowing. Is also hurting all over. Nonsmoker. Patient rather anxious. Patient also notices a raspiness in his voice. Breathing is better after getting bronchodilators steroids. August 27: Patient's headache better. CT chest unremarkable. Seen by Dr. Bennett from oncology. 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 CT of the head and neck pending. Active Medications Acetaminophen (Acetaminophen Tab 325 Mg Tab) 650 mg PO Q6HR PRN PRN Reason: Mild Pain or Fever > 100.5 Last Admin: 08/27/22 06:52 Dose: 650 mg Acetaminophen/Codeine Phosphate (Acetaminophen-Codeine 300-30mg Tab) 1 each PO Q4HR PRN PRN Reason: Moderate Pain (Scale 4 to 6) Last Admin: 08/27/22 15:39 Dose: 1 each Albuterol/Ipratropium (Ipratropium-Albuterol 3 Ml Neb) 3 ml INHALATION RT-Q4H [facility] Last Admin: 08/27/22 19:39 Dose: 3 ml Amlodipine Besylate (Amlodipine 10 Mg Tab) 10 mg PO DAILY@1200 [facility] Last Admin: 08/27/22 12:25 Dose: 10 mg Budesonide (Budesonide 1 Mg/2 Ml Nebu) 1 mg INHALATION RT-BID [facility] Last Admin: 08/27/22 19:39 Dose: 1 mg Calcium Carbonate/Glycine (Calcium Carbonate 500 Mg Chewable) 1,000 mg PO Q4HR PRN PRN Reason: Dyspepsia Enoxaparin Sodium (Enoxaparin 40 Mg/0.4 Ml Syringe) 40 mg SQ DAILY [facility] Last Admin: 08/27/22 10:23 Dose: 40 mg Guaifenesin/Dextromethorphan (Guaifenesin-Dm 100-10mg/5ml 10 Ml Cup) 10 ml PO Q6H [facility] Last Admin: 08/27/22 20:14 Dose: 10 ml Sodium Chloride (Saline 0.9%) 1,000 mls @ 130 mls/hr IV .Q7H42M [facility] Last Admin: 08/27/22 18:48 Dose: 130 mls/hr Ketorolac Tromethamine (Ketorolac 15 Mg/Ml 1 Ml Vial) 15 mg IVP Q6HR PRN PRN Reason: Moderate Pain (Scale 4 to 6) Stop: 08/29/22 18:14 Last Admin: 08/26/22 23:14 Dose: 15 mg Lactulose (Lactulose 20 Gm/30 Ml Cup) 20 gm PO DAILY PRN PRN Reason: Constipation Lorazepam (Lorazepam 0.5 Mg Tab) 0.5 mg PO Q6HR PRN PRN Reason: Anxiety Naloxone HCl (Naloxone 0.4 Mg/Ml 1 Ml Vial) 0.2 mg IV Q2M PRN PRN Reason: Opioid Reversal Nortriptyline HCl (Nortriptyline 25 Mg Cap) 50 mg PO DAILY@1200 [facility] Last Admin: 08/27/22 12:25 Dose: 50 mg Nortriptyline HCl (Nortriptyline 25 Mg Cap) 100 mg PO HS@0000 [facility] Last Admin: 08/26/22 23:07 Dose: 100 mg Ondansetron HCl (Ondansetron 4 Mg/2 Ml Vial) 4 mg IVP Q8HR PRN PRN Reason: Nausea And Vomiting Pantoprazole Sodium (Pantoprazole 40 Mg) 40 mg PO DAILY@1200 [facility] Last Admin: 08/27/22 12:25 Dose: 40 mg Temazepam (Temazepam 15 Mg Cap) 15 mg PO HS PRN PRN Reason: Insomnia Topiramate (Topiramate 25 Mg Tab) 25 mg PO BID [facility] Last Admin: 08/27/22 20:14 Dose: 25 mg Past medical history to include: GERD, hypertension, osteoarthritis, Social history: Patient used to drink anywhere from 12-15 beers at night. For over 12 years. About 2 years ago patient cutback couple of beers at night. This is his ex- . Does not smoke. Retired. Physical examination: VITAL SIGNS: 98.3, 116, 18, 164/83, 96% room air GENERAL: BMI 27.4, reclining in bed anxious. EYES: Pupils equal. Conjunctiva normal. HEENT: External appearance of nose and ears normal, oral cavity grossly normal. NECK: JVD not raised; masses not palpable. HEART: First and second heart sounds are normal; no edema. LUNGS:[ Respiratory rate normal; fair entry. ABDOMEN: Soft, nontender, liver spleen not palpable, no masses palpable. PSYCH: Alert and oriented x3; mood and affect anxiousl. MUSCULOSKELETAL:No Clubbing/cyanosis;muscles-grossly intact INVESTIGATIONS, reviewed in the clinical context: August 27: White count 15.6 low been 17.3 potassium 3.9 BUN 20 creatinine 1.7 to White count 8.4 hemoglobin 18.8 hematocrit 57.4 platelets 238 potassium 4.1 BUN 11 creatinine 1.29 Troponin I less than 0.0122 ProBNP 789 Influenza type A, type B, RSV, COVID-19: Not detected EKG tracing personally reviewed by me-heart rate 101. Right bundle-branch block. Nonspecific T-wave changes. Chest x-ray film personally reviewed by me-possibly chronic changes Computed tomography scan, soft tissue of the neck: Denies enlargement closely approximate the soft palate. Intermittent oropharynx is patent. Multiple nonenlarged lymph node seen along the anterior chain of the neck. Assessment and plan: -Possible acute asthma exacerbation and a nonsmoker.: Paternal Bronchodilators. -Patient complains of change in voice and intermittent trouble swallowing. Enlarged adenoids and computed tomography scan of the neck. Consult ENT barium swallow pending. -Acute on chronic headache. Start Topamax 25 mg twice a day. Consult neurology. Computed tomography scan of the brain without and without contrast. -Secondary polycythemia. IV fluids. Repeat CBC in the morning. Consult hematology. -CK D stage III. Continue IV fluids. Renal ultrasound. -Anxiety Pamelor -GERD PPI -Essential hypertension Amlodipine 10 mg a day Consult ENT for and a right laryngoscopy. Barium swallow pending.Renal Ultrasound. UA. Repeat labs.
[2022-08-28] MEDS: SODIUM CHLORIDE 0.9% 1,000 ML IV SCH ×4 (01:34→20:56)
[2022-08-28] MEDS: guaiFENesin-DM 100-10MG/5ML 10 ML CUP PO SCH ×4 (01:34→20:54)
[2022-08-28] MEDS: IPRATROPIUM-ALBUTEROL 3 ML NEB INHALATION SCH ×5 (04:26→20:21)
[2022-08-28 06:27] LABS: Basophils % (A) 0 %; Eosinophils # (A) 0.1 k/uL (0-0.7); Eosinophils % (A) 1 %; HCT 48.5 % (39.0-53.0); HGB 15.9 gm/dL (13.0-17.5); Lymphocytes # (A) 1.4 k/uL (1.0-4.8); Lymphocytes % (A) 11 %; MCH 32.6 pg (25.0-35.0); MCHC 32.9 g/dL (31.0-37.0); MCV 99.2 fL (80.0-100.0); Macrocytosis Slight; Mean Platelet Volume 7.5; Monocytes # (A) 0.8 k/uL (0-1.0); Monocytes % (A) 6 %; Neutrophils # (A) 9.8 k/uL (1.3-7.7); Neutrophils % (A) 80 %; Platelet Count 257 k/uL (150-450); RBC 4.88 m/uL (4.30-5.90); RDW 15.1 % (11.5-15.5); WBC 12.3 k/uL (3.8-10.6)
[2022-08-28 06:50] LABS: ALT 35 U/L (4-49); AST 60 U/L (17-59); African American GFR (CKD) 56 (>60 ml/min/1.73 sqM); Albumin 3.6 g/dL (3.5-5.0); Albumin/Globulin Ratio 1.3; Alkaline Phosphatase 83 U/L (38-126); Anion Gap 9 mmol/L; Blood Urea Nitrogen 19 mg/dL (9-20); Calcium 8.3 mg/dL (8.4-10.2); Carbon Dioxide 20 mmol/L (22-30); Chloride 109 mmol/L (98-107); Globulin 2.8 g/dL; Glucose 84 mg/dL (74-99); Non-African American GFR(CKD) 48 (>60 ml/min/1.73 sqM); Potassium 3.9 mmol/L (3.5-5.1); Sodium 138 mmol/L (137-145); Total Bilirubin 0.7 mg/dL (0.2-1.3); Total Protein 6.4 g/dL (6.3-8.2)
[2022-08-28 07:38] LABS: Appearance,Urine Clear (Clear); Bilirubin,Urine Negative (Negative); Blood,Urine Negative (Negative); Color,Urine Yellow; Glucose,Urine (UA) Negative (Negative); Ketones,Urine Negative (Negative); Leukocyte Esterase,Urine Negative (Negative); Nitrite,Urine Negative (Negative); PH, Urine 7.5 (5.0-8.0); Protein,Urine Negative (Negative); Specific Gravity,Urine 1.019 (1.001-1.035); Urobilinogen,Urine <2.0 mg/dL (<2.0)
[2022-08-28] MEDS: Acetaminophen-Codeine 300-30mg TAB PO PRN (08:07)
[2022-08-28] MEDS: TOPIRAMATE 25 MG TAB PO SCH ×2 (08:08→20:54)
[2022-08-28] MEDS: ENOXAPARIN 40 MG/0.4 ML SYRINGE SQ SCH (08:08)
[2022-08-28] MEDS: BUDESONIDE 1 MG/2 ML NEBU INHALATION SCH ×2 (08:48→20:21)
--- NOTE | 2022-08-28 09:41 | US ---
EXAMINATION TYPE: US kidneys/renal and bladder DATE OF EXAM: 08/28/2022 COMPARISON: NONE CLINICAL INDICATION: Male, 62 years old with history of Evaluate for CK D; ckd EXAM MEASUREMENTS: Right Kidney: 10.0 x 5.7 x 4.4 cm Left Kidney: 10.5 x 5.4 x 4.2 cm Right Kidney: anechoic area upper pole 3.5 x 3.7 x 3.6 cm Left Kidney: anechoic area upper pole 3.1 x 3.9 x 3.8 cm Bladder: anechoic Bilateral Jets seen: yes There is no evidence for hydronephrosis at this point in time. No nephrolithiasis is seen. No solid masses are identified. The urinary bladder is anechoic. Bilateral ureteral jets are seen. IMPRESSION: Simple renal cysts seen bilaterally.
--- NOTE | 2022-08-28 11:23 | P.PN ---
Subjective Progress Note Date: 08/28/22 I am seeing this patient in new consultation today 08/27/2022 for progressive dyspnea and persistent nonproductive cough. Patient is a 62-year-old male with past medical history significant for hypertension, GERD, osteoarthritis. Patient presented to the emergency room yesterday afternoon complaining of progressively worsening shortness of breath and a nonproductive cough that reportedly started approximately 5-6 days ago. Patient did go to his primary care provider Dr. Mabry on July for similar complaints. The patient was given a combination of Spiriva and Symbicort and sent home. There was also Stiolto along with his other inhalers. The patient did have some old azithromycin that was prescribed to him back in February,, and he did take 2 tablets before coming into the emergency room yesterday afternoon. He denies any history of asthma or COPD. He denies any smoking history. He denies any sick contacts. He denies fevers, chills, chest pain, hemoptysis. Patient is currently lying in bed, on 2 L/m nasal cannula, in no acute distress. He is oxygenating at 99%, and this could probably be weaned off. Chest x-ray on arrival showed mild right-sided diaphragmatic elevation, linear atelectasis at the right medial lung base, and chronic pleural/parenchymal density of the left lower lobe. CT of the soft tissue of the neck with contrast was ordered because of subjective feeling of throat tightness and hoarse voice, which showed a narrowed airway of the nasopharynx secondary to enlargement of the adenoids with a patent oropharynx. Patient also reports ongoing intermittent headaches and blurred vision, and a follow-up brain CTA was ordered. CBC on arrival shows an RBC count of 8.4, hemoglobin 18.8, hematocrit 57.4, platelets 238. Shows sodium 137, potassium 4.1, chloride 105, serum bicarb 18, BUN 11, creatinine 1.29, glucose 108. Normal saline is infusing at 40 mL per hour. Lactic acid level was 1.9. Troponins were low. NT proBNP 789. Negative for influenza, RSV, COVID-19. Patient is currently receiving a combination of DuoNeb's, Pulmicort, and IV Solu-Medrol. He is afebrile. Vital signs are stable. The patient is seen today 08/28/2022 in follow-up on the regular medical floor. He is currently sitting up in bed. Awake and alert in no acute distress. He is maintaining good O2 saturations in the 90s on 2 L/m per nasal cannula. Normal finger 130 ML's per hour. Computed tomography scan of the chest revealed some atelectasis at the right lower lobe. Pro-calcitonin was 0.09. Suspect tracheobronchitis. Ultrasound of the kidneys revealed no evidence of hydronephrosis. No nephrolithiasis. Simple renal cyst seen bilaterally. White count 12.3. Hemoglobin 15.9. Platelets 257. Sodium 138. Potassium 3.9. Bicarb 20. BUN 19. Creatinine 1.52. Urinalysis negative. The patient is refusing bronchodilators. He is on Lovenox for DVT prophylaxis. Objective - Vital Signs Vital signs: Vital Signs Temp 98.2 F 08/28/22 07:15 Pulse 99 08/28/22 07:15 Resp 14 08/28/22 07:15 BP 152/85 08/28/22 07:15 Pulse Ox 97 08/28/22 07:15 FiO2 Intake & Output 08/27/22 08/28/22 08/28/22 18:59 06:59 18:59 Intake Total 840 Balance 840 Intake: Oral 840 Other: # Voids 1 2 - Exam GENERAL EXAM: Alert, pleasant 62-year-old male, on 2 L nasal cannula, comfortable in no apparent distress. HEAD: Normocephalic and atraumatic EYES: Normal reaction of pupils, equal size. NOSE: Clear with pink turbinates. THROAT: No erythema or exudates. NECK: No masses, no JVD. CHEST: No chest wall deformity. LUNGS: Equal air entry with no crackles, wheeze, rhonchi or dullness. CVS: S1 and S2 normal with no audible murmur, regular rhythm. No extra heart sounds ABDOMEN: No hepatosplenomegaly, active bowel sounds, no guarding or rigidity. SPINE: No scoliosis or deformity SKIN: No rashes CENTRAL NERVOUS SYSTEM: No focal deficits, tone is normal in all 4 extremities. EXTREMITIES: There is no peripheral edema, clubbing, or cyanosis. Peripheral pulses are intact. - Labs CBC & Chem 7: 08/28/22 05:50 08/28/22 05:50 Labs: Abnormal Lab Results - Last 24 Hours (Table) 08/27/22 08/27/22 08/28/22 Range/Units 12:41 12:41 05:50 WBC 15.6 H (3.8-10.6) k/uL Neutrophils # 13.5 H (1.3-7.7) k/uL Lymphocytes # 0.8 L (1.0-4.8) k/uL Monocytes # 1.3 H (0-1.0) k/uL Chloride 109 H (98-107) mmol/L Carbon Dioxide 20 L 20 L (22-30) mmol/L Creatinine 1.72 H 1.52 H (0.66-1.25) mg/dL Glucose 106 H (74-99) mg/dL Calcium 8.3 L (8.4-10.2) mg/dL AST 60 H (17-59) U/L 08/28/22 Range/Units 05:50 WBC 12.3 H (3.8-10.6) k/uL Neutrophils # 9.8 H (1.3-7.7) k/uL Lymphocytes # (1.0-4.8) k/uL Monocytes # (0-1.0) k/uL Chloride (98-107) mmol/L Carbon Dioxide (22-30) mmol/L Creatinine (0.66-1.25) mg/dL Glucose (74-99) mg/dL Calcium (8.4-10.2) mg/dL AST (17-59) U/L Assessment and Plan Assessment: Acute hypoxemic respiratory failure, currently on 2 L/m nasal cannula, possibly secondary to acute bronchitis. Chest x-ray on arrival did not reveal any acute developing infiltrates or pneumonia. It did show mild right-sided diaphragmatic elevation, linear atelectasis at the right medial lung base, and chronic pleural/parenchymal density of the left lower lobe. Negative for influenza, RSV, COVID-19. Pro-calcitonin negative. Computed tomography scan of the chest revealed atelectatic changes of the right lung base. Essential hypertension Acute kidney injury, creatinine 1.52. Ultrasound reveals no hydronephrosis. No nephrolithiasis. Polycythemia GERD without esophagitis Osteoarthritis Denies smoking history Plan: The patient was seen and evaluated CAT scan, labs and medications reviewed Procalcitonin negative Cleared for discharge from the pulmonary standpoint I have personally seen and examined the patient, performed the documentation and the assessment and plan as written. Number of minutes spent on the visit: 10.
--- NOTE | 2022-08-28 12:55 | FL ---
INDICATION: Patient age:Male; 62 years old; Reason for study: intermittent trouble swallowing; PHH. COMPARISON: None TECHNIQUE: Utilizing real-time video recording fluoroscopy, multiple images were obtained after admin istration of various consistencies of barium contrast. A speech pathologist was present throughout th e exam. Fluoroscopic time: 46 seconds Fluoroscopic images: None saved Total DAP: Unable to obtain due to technical difficulties. FINDINGS: Consistencies administered: Pudding, honey, nectar thick, thin, and cracker barium. During the oral phase there is normal formation of food bolus with normal initiation of swallow with all consistencie s. Premature spill: With honey, nectar thick, pudding, and cracker barium consistencies. Laryngeal penetration: None identified. Piriform Retention:None identified Vallecular retention: None identified. Nasopharyngeal reflux: None identified. Tracheal aspiration: None identified. IMPRESSION: 1. No evidence of tracheal aspiration. 2. Premature spill. Please see dedicated speech pathology report for additional information.
--- NOTE | 2022-08-28 13:16 | CT ---
EXAMINATION TYPE: CT brain wo/w con CT DLP: 2186.2 mGycm, Automated exposure control for dose reduction was used. DATE OF EXAM: 08/28/2022 1:07 PM COMPARISON: None. CLINICAL INDICATION:Male, 62 years old with history of acute on chronic headaches; PHH, headaches TECHNIQUE: Axial CT images of the brain were obtained with coronal and sagittal reformats created and reviewed. Contrast used:80cc mL of Isovue 370 without and with IV Contrast, Oral contrast used: none. FINDINGS: Extra-axial spaces: No abnormal extra-axial fluid collections. Ventricular system: Within normal limits Cerebral parenchyma: No acute intraparenchymal hemorrhage or mass effect. The esposito-white junction is well differentiated. No abnormal enhancement is seen after the administration of intravenous contras t. Cerebellum: Unremarkable. Mass effect: No evidence of midline shift. Intracranial vasculature: Atherosclerotic calcifications of the intracranial vessels. No evidence for intracranial aneurysm or high-grade stenosis. The dural venous sinuses appear patent. Dominant right small left transverse sinuses. Soft tissues: Normal. Calvarium/osseous structures: No depressed skull fracture. Paranasal sinuses and mastoid air cells: Clear. Visualized orbits: Orbital contents are intact. IMPRESSION: 1. No acute intracranial process. 2. No abnormal postcontrast enhancement.
[2022-08-28] MEDS: NORTRIPTYLINE 25 MG CAP PO SCH ×2 (13:25→22:46)
[2022-08-28] MEDS: amLODIPine 10 MG TAB PO SCH (13:25)
[2022-08-28] MEDS: PANTOPRAZOLE 40 MG TABLET PO SCH (13:25)
--- NOTE | 2022-08-28 13:27 | CT ---
EXAMINATION TYPE: CT angio head CT DLP: 1009.3 mGycm, Automated exposure control for dose reduction was used. DATE OF EXAM: 08/28/2022 1:09 PM COMPARISON: CT brain 08/28/2022. CLINICAL INDICATION:Male, 62 years old with history of acute on chronic headaches; PHH, headaches TECHNIQUE: Axially acquired helical CT angiogram of the head was obtained with contrast utilizing 80 cc of Isovue-370 administered intravenously. Axial images are supplemented with 3D reconstructions wh ich were post-processed at an independent workstation. NASCET criteria used. FINDINGS: The visualized portions of the internal carotid arteries, middle cerebral arteries, anterior cerebral arteries, and posterior cerebral arteries are patent. The basilar and vertebral arteries are patent. The vertebral arteries are codominant. IMPRESSION: No evidence of high-grade stenosis or intracranial aneurysm.
--- NOTE | 2022-08-28 18:05 | P.OP ---
Date of Procedure: 08/28/22 Preoperative Diagnosis: Hoarseness shortness of breath Postoperative Diagnosis: Same Procedure(s) Performed: Flexible diagnostic nasopharyngolaryngoscope Anesthesia: none Surgeon: Mello Paul Pathology: none sent Condition: stable Disposition: floor Indications for Procedure: Patient for the last 1-2 weeks has had severe cough shortness of breath. He's developed hoarseness I've been asked to evaluate the patient regarding his hoarseness. CAT scan also felt that his adenoids were enlarged and that his nasopharynx was closed because of his adenoid hypertrophy. The patient was on multiple inhalers. He been coughing excessively and he's been successfully treated for shortness of breath any is no longer on any oxygen therapy. His pulse oximeter industries and 99%. His cough has been productive. Operative Findings: Patient was found to have minimal adenoid hypertrophy but significant hyperemia of the nasopharynx oropharynx and hypopharynx. Laryngitis is noted with some inflamed vocal cords bilaterally. Vocal cords are moving well bilaterally. There is a large amount of tracheitis and mucus in the trachea. Coughing is somewhat ineffective to bring up the mucus from the trachea. The mucus is thick and viscous. Patient has evidence of nasopharyngitis, hypopharyngeal and is, laryngitis and tracheitis. Description of Procedure: A nasal pharyngeal endoscope was inserted into the patient's left nares but a left septal deviation was noted and we could not go further we then inserted on the right side and followed the floor the nose into the nasopharynx. Nasopharynx was inflamed with hyperemia noted adenoids were small. The oropharynx is hyperemic and the hypopharynx is hyperemic. There is an vocal cord edema and inflammation but there is excellent movement of the vocal cords bilaterally. The trachea is inflamed and hyperemic there is mucus noted in the trachea and is having a hard time bringing the mucus up with an active cough.
--- NOTE | 2022-08-28 18:10 | P.PN ---
Subjective Progress Note Date: 08/28/22 The patient seen at bedside and he stated that his headache has resolved today but then after getting school by ENT he start having productive cough and he feels the headache is back.. Denies of any neurological issues. Objective - Vital Signs Vital signs: Vital Signs Temp 97.7 F 08/28/22 14:09 Pulse 108 H 08/28/22 14:09 Resp 14 08/28/22 07:15 BP 171/86 08/28/22 14:09 Pulse Ox 95 08/28/22 14:09 FiO2 Intake & Output 08/27/22 08/28/22 08/28/22 18:59 06:59 18:59 Intake Total 840 Balance 840 Intake: Oral 840 Other: # Voids 1 2 1 - Exam GENERAL: The patient is sitting in a recliner chair and is not in acute dist ress. LUNG: Had productive cough during examination. NEUROLOGICAL: Higher mental function: The patient is awake, alert, oriented to self, place and time. Patient is following commands. No aphasia and no neglect. Cranial nerves: The pupils are round, equal and reactive to light and accommodation. Visual christensen are full to confrontation throughout. Extraocular movement is intact no nystagmus is noted. Facial sensation is normal to touch throughout. The facial strength is normal throughout. Hearing is moderately decreased bilaterally to hand rub. Tongue is midline and moved [id number] without any difficulty. No dysarthria is noted. Shoulder shrug is normal bilaterally. Motor: The strength is 5 over 5 throughout. Normal tone and bulk. Cerebellum: Normal finger to nose heel to hamm bilaterally. Sensation: Sensation is normal to touch throughout. Reflexes (right/left): 2+ throughout. Plantars are downgoing bilaterally. Some other workup during his hospital visit consisted of: Heart rate is a 106, respiratory rate is a in the range of 18 to 20s. Hemoglobins 18.8 and hematocrit is 57.4 CT of soft tissue of the neck is reported as narrowed airway to that and narrow pharynx secondary to enlargement of the adenoids in close approximation to the soft palate. The oropharynx airway is patent. No evidence for mass. CT of the head is reported as no acute intracranial process. No abnormal postcontrast enhancement. CT angiography of the head is reported as no evidence of high-grade stenosis or intracranial aneurysm. - Labs CBC & Chem 7: 08/28/22 05:50 08/28/22 05:50 Labs: Abnormal Lab Results - Last 24 Hours (Table) 08/28/22 08/28/22 Range/Units 05:50 05:50 WBC 12.3 H (3.8-10.6) k/uL Neutrophils # 9.8 H (1.3-7.7) k/uL Chloride 109 H (98-107) mmol/L Carbon Dioxide 20 L (22-30) mmol/L Creatinine 1.52 H (0.66-1.25) mg/dL Calcium 8.3 L (8.4-10.2) mg/dL AST 60 H (17-59) U/L Assessment and Plan Assessment: Acute on chronic cephalgia seems due to likely worsening dyspnea, polycythemia and due to trachetitis/bronchitis. CT of the head and CT angiography of the head is negative ---head has improved today. Acute hypoxic respiratory failure Polycythemia Enlargement of the adenoids on the CT of the neck Tracheitis and bronchitis Remote head conccussion about >8-10 years Essential hypertension ARTHRITIS Plan: Patient stated that his headache has improved. But heis one that he has severe coughs. I spoke with ENT team and he stated patient has tracheitis and bronchitis and likely needs a prolonged antibiotic use Pulmonary team is on board Consider ENT is on board. We'll defer the rest of the abdomen to the primary and other specialists Plan discussed with the patient and his nurse. There is no additional neurological workup. Please notify neurology team if any further concerns. Time with Patient: Less than 30
--- NOTE | 2022-08-28 18:19 | P.GSCN ---
History of Present Illness Consult date: 08/28/22 Reason for Consult: Hoarseness, shortness of breath Requesting physician: Melvin Martinez History of present illness: This patient has had progressive shortness of breath over the last 2 weeks and presented to the emergency room on August 26 where he was admitted and placed on oxygen. Pulmonary is currently managing his shortness of breath. Hoarseness has been a problem for the last week but he does state that he is coughing significantly and has been utilizing multiple inhalers. He cannot remember the name of the halos that he was utilizing prior to admission. He states that his hoarseness is persistent but his shortness of breath is improved her he is now off oxygen. His pulse oximeter has been stable since she been off oxygen. His cough has been productive. He is not exposed to any chemicals or other issues. He has not coughed up any blood. Denies any other symptomatology. Review of Systems - Constitutional Reports as per HPI - EENT Ears, nose, mouth and throat: Reports as per HPI - Cardiovascular Reports as per HPI - Respiratory Reports as per HPI - Gastrointestinal Reports as per HPI - Genitourinary Reports as per HPI - Musculoskeletal Reports as per HPI - Integumentary Reports as per HPI - Neurological Reports as per HPI - Psychiatric Reports as per HPI - Endocrine Reports as per HPI - Hematologic/Lymphatic Reports as per HPI - Allergic/Immunologic Reports as per HPI Past Medical History Past Medical History: Chest Pain / Angina, GERD/Reflux, Hypertension, Osteoarth ritis (OA) Additional Past Medical History / Comment(s): chest pressure, fatigue History of Any Multi-Drug Resistant Organisms: None Reported Past Surgical History: Hernia Repair Additional Past Surgical History / Comment(s): L groin hernia Past Anesthesia/Blood Transfusion Reactions: No Reported Reaction Past Psychological History: No Psychological Hx Reported Smoking Status: Never smoker Past Alcohol Use History: Occasional Additional Past Alcohol Use History / Comment(s): used to drink 6 or more beers daily, down to 2-3 beers per day Past Drug Use History: None Reported Medications and Allergies Home Medications Medication Instructions Recorded Confirmed Type Felodipine [Plendil] 10 mg PO DAILY@1200 10/05/19 08/26/22 History Nortriptyline [Pamelor] 50 mg PO DAILY@119910/05/19 08/26/22 History Nortriptyline [Pamelor] 100 mg PO HS@0000 10/05/19 08/26/22 History Omeprazole [PriLOSEC] 40 mg PO DAILY@1200 10/05/19 08/26/22 History Azithromycin [Zithromax] See Taper PO DIRECTED 08/26/22 08/26/22 History Budesonide/Formoterol Fumarate 2 puff INHALATION RT-BID@1200,0000 08/26/22 08/26/22 History [Symbicort 160-4.5 Mcg Inhaler] Testosterone Cypionate 400 mg IM Q30D 08/26/22 08/26/22 History [Depo-Testosterone] Tiotropium 2.5 Mcg/Puff [Spiriva 1 puff INHALATION RT-DAILY@1200 08/26/22 08/26/22 History Respimat 2.5 Mcg] Tiotropium Br/Olodaterol HCl 1 puff INHALATION RT-DAILY@1800 08/26/22 08/26/22 History [Stiolto Respimat Inhal [place]] Allergies Allergy/AdvReac Type Severity Reaction Status Date / Time Sulfa (Sulfonamide Allergy Rash/Hives Verified 08/26/22 17:27 Antibiotics) sulfamethoxazole Allergy Rash/Hives Verified 08/26/22 17:27 [From Bactrim] trimethoprim [From Bactrim] Allergy Rash/Hives Verified 08/26/22 17:27 Surgical - Exam Osteopathic Statement: *. No significant issues noted on an osteopathic structural exam other than those noted in the History and Physical/Consult. Vital Signs Temp Pulse Resp BP Pulse Ox 97.7 F 109 H 18 159/79 98 08/26/22 13:48 08/26/22 13:48 08/26/22 13:48 08/26/22 13:48 08/26/22 13:48 - General well developed, well nourished, no distress - Eyes PERRL, normal ocular movement - ENT Head is normocephalic, the face is symmetric, there is no abnormal movements, no tenderness to the sinuses are mastoids, no skin lesions noted. No shows a left septal deviation, auricles are well-formed canals are clear tympanic members are without bulging or retraction. Neck is unremarkable, mouth and throat unremarkable. normal pinna - Neck no masses, no bruits, trachea midline, no lymphadectomy, no venous distension - Integumentary no rash, no growths - Neurologic normal coordination, normal sensation - Musculoskeletal normal gait, normal posture - Psychiatric oriented to time, oriented to person, oriented to place, speech is normal, memory intact Results - Labs 08/28/22 05:50 08/28/22 05:50 Abnormal Lab Results - Last 24 Hours (Table) 08/28/22 08/28/22 Range/Units 05:50 05:50 WBC 12.3 H (3.8-10.6) k/uL Neutrophils # 9.8 H (1.3-7.7) k/uL Chloride 109 H (98-107) mmol/L Carbon Dioxide 20 L (22-30) mmol/L Creatinine 1.52 H (0.66-1.25) mg/dL Calcium 8.3 L (8.4-10.2) mg/dL AST 60 H (17-59) U/L Diabetes panel 08/28/22 Range/Units 05:50 Sodium 138 (137-145) mmol/L Potassium 3.9 (3.5-5.1) mmol/L Chloride 109 H (98-107) mmol/L Carbon Dioxide 20 L (22-30) mmol/L BUN 19 (9-20) mg/dL Creatinine 1.52 H (0.66-1.25) mg/dL Glucose 84 (74-99) mg/dL Calcium 8.3 L (8.4-10.2) mg/dL AST 60 H (17-59) U/L ALT 35 (4-49) U/L Alkaline Phosphatase 83 (38-126) U/L Total Protein 6.4 (6.3-8.2) g/dL Albumin 3.6 (3.5-5.0) g/dL Calcium panel 08/28/22 Range/Units 05:50 Calcium 8.3 L (8.4-10.2) mg/dL Albumin 3.6 (3.5-5.0) g/dL Pituitary panel 08/28/22 Range/Units 05:50 Sodium 138 (137-145) mmol/L Potassium 3.9 (3.5-5.1) mmol/L Chloride 109 H (98-107) mmol/L Carbon Dioxide 20 L (22-30) mmol/L BUN 19 (9-20) mg/dL Creatinine 1.52 H (0.66-1.25) mg/dL Glucose 84 (74-99) mg/dL Calcium 8.3 L (8.4-10.2) mg/dL Adrenal panel 08/28/22 Range/Units 05:50 Sodium 138 (137-145) mmol/L Potassium 3.9 (3.5-5.1) mmol/L Chloride 109 H (98-107) mmol/L Carbon Dioxide 20 L (22-30) mmol/L BUN 19 (9-20) mg/dL Creatinine 1.52 H (0.66-1.25) mg/dL Glucose 84 (74-99) mg/dL Calcium 8.3 L (8.4-10.2) mg/dL Total Bilirubin 0.7 (0.2-1.3) mg/dL AST 60 H (17-59) U/L ALT 35 (4-49) U/L Alkaline Phosphatase 83 (38-126) U/L Total Protein 6.4 (6.3-8.2) g/dL Albumin 3.6 (3.5-5.0) g/dL Assessment and Plan (1) Acute laryngitis and tracheitis Current Visit: Yes Status: Acute Code(s): J04.2 - ACUTE LARYNGOTRACHEITIS SNOMED Code(s): 592776166 Plan: This patient has acute laryngitis, nasopharyngitis, hypopharyngeal and is an tracheitis and bronchitis. It is entire airway is inflamed from the nasopharynx into the lungs. He is having a hard time bringing up mucus. Adequate hydration is recommended. Continue current medical treatment. Voice rest may be a consideration if the hoarseness is problematic. There is no evidence of any vocal cord paralysis or paresis or any signs of any laryngeal tumors or masses. This is strictly an inflammatory issue that should resolve when his infection resolves. Thank you for alarming to participate in the care of this patient. If you need my services please do not hesitate to reconsult or send the patient to my office on outpatient basis. Thank you Time with Patient: Greater than 30
--- NOTE | 2022-08-28 22:13 | P.PN ---
Progress Note - Text Progress Note Date: 08/28/22 Chief Complaint: Short of breath I'm rounding for Dr. Juan Pablo Mabry. 62-year-old patient who follows with Dr. Juan Pablo Mabry. Patient had gone to see Dr. Mabry about a week ago with some shortness of breath was given inhalers. Not responding. Patient now presents with Multiple symptoms. Has been increasingly short of breath. Occasional cough. He feels sometimes throat is swollen. Patient's had chronic headache for years which is progressively getting much worse. Occasionally gets blurry vision. He thinks he might sometimes have trouble with swallowing. Is also hurting all over. Nonsmoker. Patient rather anxious. Patient also notices a raspiness in his voice. Breathing is better after getting bronchodilators steroids. August 27: Patient's headache better. CT chest unremarkable. Seen by Dr. Santos from oncology. 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 CT of the head and neck pending. August 28: Patient was seen by me this morning. Up in a chair. Headache is better. Was pending MRI of the brain. Eating better. Modified barium swallow: Show no evidence of tracheal aspiration. Also underwent flexible diagnostic nasopharynx laryngoscopy by Dr. Menezes: Minimal adenoid hypertrophy. Significant hyperemia of the nasopharynx or off oropharynx and hypopharynx. Laryngitis. Some inflamed vocal cords bilaterally. Large amount of tracheitis and mucus in the trachea. Mucus is thick and viscous. Head CT: Unremarkable Active Medications Acetaminophen (Acetaminophen Tab 325 Mg Tab) 650 mg PO Q6HR PRN PRN Reason: Mild Pain or Fever > 100.5 Last Admin: 08/27/22 06:52 Dose: 650 mg Acetaminophen/Codeine Phosphate (Acetaminophen-Codeine 300-30mg Tab) 1 each PO Q4HR PRN PRN Reason: Moderate Pain (Scale 4 to 6) Last Admin: 08/28/22 08:07 Dose: 1 each Albuterol/Ipratropium (Ipratropium-Albuterol 3 Ml Neb) 3 ml INHALATION RT-Q4H IVAN Last Admin: 08/28/22 20:21 Dose: 3 ml Amlodipine Besylate (Amlodipine 10 Mg Tab) 10 mg PO DAILY@1200 [facility] Last Admin: 08/28/22 13:25 Dose: 10 mg Budesonide (Budesonide 1 Mg/2 Ml Nebu) 1 mg INHALATION RT-BID [facility] Last Admin: 08/28/22 20:21 Dose: 1 mg Calcium Carbonate/Glycine (Calcium Carbonate 500 Mg Chewable) 1,000 mg PO Q4HR PRN PRN Reason: Dyspepsia Enoxaparin Sodium (Enoxaparin 40 Mg/0.4 Ml Syringe) 40 mg SQ DAILY [facility] Last Admin: 08/28/22 08:08 Dose: 40 mg Guaifenesin/Dextromethorphan (Guaifenesin-Dm 100-10mg/5ml 10 Ml Cup) 10 ml PO Q6H [facility] Last Admin: 08/28/22 20:54 Dose: 10 ml Sodium Chloride (Saline 0.9%) 1,000 mls @ 130 mls/hr IV .Q7H42M [facility] Last Admin: 08/28/22 20:56 Dose: Not Given Ketorolac Tromethamine (Ketorolac 15 Mg/Ml 1 Ml Vial) 15 mg IVP Q6HR PRN PRN Reason: Moderate Pain (Scale 4 to 6) Stop: 08/29/22 18:14 Last Admin: 08/26/22 23:14 Dose: 15 mg Lactulose (Lactulose 20 Gm/30 Ml Cup) 20 gm PO DAILY PRN PRN Reason: Constipation Lorazepam (Lorazepam 0.5 Mg Tab) 0.5 mg PO Q6HR PRN PRN Reason: Anxiety Naloxone HCl (Naloxone 0.4 Mg/Ml 1 Ml Vial) 0.2 mg IV Q2M PRN PRN Reason: Opioid Reversal Nortriptyline HCl (Nortriptyline 25 Mg Cap) 50 mg PO DAILY@1200 [facility] Last Admin: 08/28/22 13:25 Dose: 50 mg Nortriptyline HCl (Nortriptyline 25 Mg Cap) 100 mg PO HS@0000 [facility] Last Admin: 08/27/22 22:58 Dose: 100 mg Ondansetron HCl (Ondansetron 4 Mg/2 Ml Vial) 4 mg IVP Q8HR PRN PRN Reason: Nausea And Vomiting Pantoprazole Sodium (Pantoprazole 40 Mg Tablet) 40 mg PO DAILY@1200 [facility] Last Admin: 08/28/22 13:25 Dose: 40 mg Temazepam (Temazepam 15 Mg Cap) 15 mg PO HS PRN PRN Reason: Insomnia Topiramate (Topiramate 25 Mg Tab) 25 mg PO BID [facility] Last Admin: 08/28/22 20:54 Dose: 25 mg Past medical history to include: GERD, hypertension, osteoarthritis, Social history: Patient used to drink anywhere from 12-15 beers at night. For over 12 years. About 2 years ago patient cutback couple of beers at night. This is his ex- . Does not smoke. Retired. Physical examination: VITAL SIGNS: 98.2, 99, 14, 152/85, 97% on 2 L GENERAL: BMI 27.4, up in a chair, looking better EYES: Pupils equal. Conjunctiva normal. HEENT: External appearance of nose and ears normal, oral cavity grossly normal. NECK: JVD not raised; masses not palpable. HEART: First and second heart sounds are normal; no edema. LUNGS:[ Respiratory rate normal; fair entry. ABDOMEN: Soft, nontender, liver spleen not palpable, no masses palpable. PSYCH: Alert and oriented x3; mood and affect anxiousl. MUSCULOSKELETAL:No Clubbing/cyanosis;muscles-grossly intact INVESTIGATIONS, reviewed in the clinical context: Renal ultrasound: No hydronephrosis. No masses. Modified Barium swallow: Unremarkable Head CT: Unremarkable Nasopharynx laryngoscopy: Evidence of inflammation at the nasopharynx pharyngitis some vocal cord inflammation tracheitis. Thick mucus. August 28: White count 12.3 hemoglobin 15.9 potassium 3.9 BUN 19 creatinine 1.5 to Procalcitonin 0.09 August 27: White count 15.6 low been 17.3 potassium 3.9 BUN 20 creatinine 1.7 to White count 8.4 hemoglobin 18.8 hematocrit 57.4 platelets 238 potassium 4.1 BUN 11 creatinine 1.29 Troponin I less than 0.0122 ProBNP 789 Influenza type A, type B, RSV, COVID-19: Not detected EKG tracing personally reviewed by me-heart rate 101. Right bundle-branch block. Nonspecific T-wave changes. Chest x-ray film personally reviewed by me-possibly chronic changes Computed tomography scan, soft tissue of the neck: Denies enlargement closely approximate the soft palate. Intermittent oropharynx is patent. Multiple nonenlarged lymph node seen along the anterior chain of the neck. Assessment and plan: -Acute severe pharyngitis, laryngitis, tracheitis with thick mucus. Prednisone. Omnicef -Patient complains of change in voice and intermittent trouble swallowing. Enlarged adenoids and computed tomography scan of the neck. Consult ENT barium swallow pending. -Acute on chronic headache. Topamax 25 mg twice a day. Follow with neurology. CT brain negative. -Secondary polycythemia. Likely secondary to dehydration. IV fluids. Improved -CK D stage III. Continue IV fluids. Renal ultrasound-unremarkable. -Anxiety Pamelor -GERD PPI -Essential hypertension Amlodipine 10 mg a day Start the patient on prednisone, Omnicef for the pharyngitis/laryngitis. Continue IV hydration. Repeat BMP in the morning. Other workup has been negative. Patient does feel better. Probable discharge tomorrow.
[2022-08-28] MEDS: predniSONE 20 MG TAB PO SCH (22:46)
[2022-08-28] MEDS: CEFDINIR 300 MG CAP PO SCH (22:47)
[2022-08-28] MEDS: guaiFENesin 600 MG TABLET.ER PO SCH (22:47)
[2022-08-29] MEDS: IPRATROPIUM-ALBUTEROL 3 ML NEB INHALATION SCH ×6 (00:48→20:19)
[2022-08-29] MEDS: SODIUM CHLORIDE 0.9% 1,000 ML IV SCH ×4 (05:45→23:46)
[2022-08-29] MEDS: BUDESONIDE 1 MG/2 ML NEBU INHALATION SCH ×2 (09:00→20:21)
[2022-08-29] MEDS: CEFDINIR 300 MG CAP PO SCH ×2 (09:45→20:00)
[2022-08-29] MEDS: LOSARTAN-HCTZ 50-12.5 MG 1 EACH TAB PO SCH (09:45)
[2022-08-29] MEDS: predniSONE 20 MG TAB PO SCH (09:45)
[2022-08-29] MEDS: TOPIRAMATE 25 MG TAB PO SCH ×2 (09:45→20:00)
[2022-08-29] MEDS: guaiFENesin 600 MG TABLET.ER PO SCH ×4 (09:45→22:03)
[2022-08-29] MEDS: ENOXAPARIN 40 MG/0.4 ML SYRINGE SQ SCH (09:45)
--- NOTE | 2022-08-29 10:15 | P.PN ---
Subjective Progress Note Date: 08/29/22 I am seeing this patient in new consultation today 08/27/2022 for progressive dyspnea and persistent nonproductive cough. Patient is a 62-year-old male with past medical history significant for hypertension, GERD, osteoarthritis. Patient presented to the emergency room yesterday afternoon complaining of progressively worsening shortness of breath and a nonproductive cough that reportedly started approximately 5-6 days ago. Patient did go to his primary care provider Dr. Mabry on July for similar complaints. The patient was given a combination of Spiriva and Symbicort and sent home. There was also Stiolto along with his other inhalers. The patient did have some old azithromycin that was prescribed to him back in February,, and he did take 2 tablets before coming into the emergency room yesterday afternoon. He denies any history of asthma or COPD. He denies any smoking history. He denies any sick contacts. He denies fevers, chills, chest pain, hemoptysis. Patient is currently lying in bed, on 2 L/m nasal cannula, in no acute distress. He is oxygenating at 99%, and this could probably be weaned off. Chest x-ray on arrival showed mild right-sided diaphragmatic elevation, linear atelectasis at the right medial lung base, and chronic pleural/parenchymal density of the left lower lobe. CT of the soft tissue of the neck with contrast was ordered because of subjective feeling of throat tightness and hoarse voice, which showed a narrowed airway of the nasopharynx secondary to enlargement of the adenoids with a patent oropharynx. Patient also reports ongoing intermittent headaches and blurred vision, and a follow-up brain CTA was ordered. CBC on arrival shows an RBC count of 8.4, hemoglobin 18.8, hematocrit 57.4, platelets 238. Shows sodium 137, potassium 4.1, chloride 105, serum bicarb 18, BUN 11, creatinine 1.29, glucose 108. Normal saline is infusing at 40 mL per hour. Lactic acid level was 1.9. Troponins were low. NT proBNP 789. Negative for influenza, RSV, COVID-19. Patient is currently receiving a combination of DuoNeb's, Pulmicort, and IV Solu-Medrol. He is afebrile. Vital signs are stable. The patient is seen today 08/28/2022 in follow-up on the regular medical floor. He is currently sitting up in bed. Awake and alert in no acute distress. He is maintaining good O2 saturations in the 90s on 2 L/m per nasal cannula. Normal finger 130 ML's per hour. Computed tomography scan of the chest revealed some atelectasis at the right lower lobe. Pro-calcitonin was 0.09. Suspect tracheobronchitis. Ultrasound of the kidneys revealed no evidence of hydronephrosis. No nephrolithiasis. Simple renal cyst seen bilaterally. White count 12.3. Hemoglobin 15.9. Platelets 257. Sodium 138. Potassium 3.9. Bicarb 20. BUN 19. Creatinine 1.52. Urinalysis negative. The patient is refusing bronchodilators. He is on Lovenox for DVT prophylaxis. The patient is seen today 08/29/2022 in follow-up on the regular medical floor. He is currently sitting up in a chair at the bedside. Awake and alert in no acute distress. He is currently maintaining O2 saturations in the upper 90s on 2 L/m per nasal cannula. Afebrile. Hemodynamically stable. Computed tomography scan of the brain revealed no acute intracranial process. CT alesia ogram of the head revealed no evidence of high-grade stenosis or intracranial aneurysm. A flexible nasopharyngeal laryngoscope was performed yesterday by ENT and he was found to have evidence of nasopharyngitis, laryngitis and tracheitis. Pro-calcitonin was 0.09. He is continued on Omnicef and a prednisone taper. Objective - Vital Signs Vital signs: Vital Signs Temp 97.3 F L 08/29/22 07:00 Pulse 98 08/29/22 09:14 Resp 16 08/29/22 07:00 BP 136/77 08/29/22 07:00 Pulse Ox 97 08/29/22 09:00 FiO2 Intake & Output 08/28/22 08/29/22 08/29/22 18:59 06:59 18:59 Intake Total 222 Balance 222 Intake: Oral 222 Other: Voiding Method Toilet # Voids 1 2 - Exam GENERAL EXAM: Alert, 62-year-old male, sitting up in a chair, comfortable in no apparent distress. HEAD: Normocephalic and atraumatic EYES: Normal reaction of pupils, equal size. NOSE: Clear with pink turbinates. THROAT: No erythema or exudates. NECK: No masses, no JVD. CHEST: No chest wall deformity. LUNGS: Equal air entry with no crackles, wheeze, rhonchi or dullness. CVS: S1 and S2 normal with no audible murmur, regular rhythm. No extra heart sounds ABDOMEN: No hepatosplenomegaly, active bowel sounds, no guarding or rigidity. SPINE: No scoliosis or deformity SKIN: No rashes CENTRAL NERVOUS SYSTEM: No focal deficits, tone is normal in all 4 extremities. EXTREMITIES: There is no peripheral edema, clubbing, or cyanosis. Peripheral pulses are intact. - Labs CBC & Chem 7: 08/28/22 05:50 08/28/22 05:50 Assessment and Plan Assessment: Acute hypoxemic respiratory failure, currently on 2 L/m nasal cannula, possibly secondary to acute bronchitis. Chest x-ray on arrival did not reveal any acute developing infiltrates or pneumonia. It did show mild right-sided diaphragmatic elevation, linear atelectasis at the right medial lung base, and chronic pleural/parenchymal density of the left lower lobe. Negative for influenza, RSV, COVID-19. Pro-calcitonin negative. Computed tomography scan of the chest revealed atelectatic changes of the right lung base. ENT did perform laryngoscope and the patient was found to have evidence of nasopharyngitis, laryngitis, tracheitis Acute on chronic headaches. Computed tomography scan of the brain revealed no acute intracranial process. CT angiogram revealed no evidence of high-grade stenosis or intracranial aneurysm. Essential hypertension Acute kidney injury, creatinine 1.52. Ultrasound reveals no hydronephrosis. No nephrolithiasis. Polycythemia GERD without esophagitis Osteoarthritis Denies smoking history Plan: The patient was seen and evaluated CAT scan, ENT report, medications reviewed Procalcitonin negative Titrated off the FiO2 Cleared for discharge from the pulmonary standpoint I have personally seen and examined the patient, performed the documentation and the assessment and plan as written. Number of minutes spent on the visit: 10.
[2022-08-29] MEDS: NORTRIPTYLINE 25 MG CAP PO SCH ×2 (13:11→23:49)
[2022-08-29] MEDS: PANTOPRAZOLE 40 MG TABLET PO SCH (13:12)
[2022-08-29] MEDS: amLODIPine 10 MG TAB PO SCH (13:12)
[2022-08-29] MEDS: Acetaminophen-Codeine 300-30mg TAB PO PRN (18:10)
[2022-08-29] MEDS: guaiFENesin-DM 100-10MG/5ML 10 ML CUP PO SCH (22:02)
[2022-08-30] MEDS: IPRATROPIUM-ALBUTEROL 3 ML NEB INHALATION SCH ×3 (02:00→08:57)
--- NOTE | 2022-08-30 03:27 | PN ---
PROGRESS NOTE SUBJECTIVE: This is a 62-year-old white male came with sinusitis, bronchitis, COPD exacerbation, much better. ENT saw him, cleared him. Pulmonary seeing him, he is breathing better, wants to go home in the morning. OBJECTIVE: CARDIOVASCULAR: S1, S2. LUNGS: Rales wheeze, O2 97 on room air. Transmitted upper sounds. VITAL SIGNS: Blood pressure 130/79, pulse 90s to 106, temp 98.1. HEMATOLOGY: Negative for Homans. PSYCH: Fair mood and affect. PLAN: The patient will be discharged home tomorrow on oral medications for pharyngitis and tracheitis. Stable from cardiac and pulmonary standpoint, we will discharge home tomorrow. Follow up as outpatient. MMODL / IJN: [id number] /
[2022-08-30] MEDS: predniSONE 20 MG TAB PO SCH (08:31)
[2022-08-30] MEDS: TOPIRAMATE 25 MG TAB PO SCH (08:31)
[2022-08-30] MEDS: LOSARTAN-HCTZ 50-12.5 MG 1 EACH TAB PO SCH (08:32)
[2022-08-30] MEDS: guaiFENesin 600 MG TABLET.ER PO SCH (08:32)
[2022-08-30] MEDS: CEFDINIR 300 MG CAP PO SCH (08:32)
[2022-08-30] MEDS: ENOXAPARIN 40 MG/0.4 ML SYRINGE SQ SCH (08:35)
[2022-08-30] MEDS: BUDESONIDE 1 MG/2 ML NEBU INHALATION SCH (08:57)
[2022-08-30 10:40] VITALS: BP 151/82; PULSE 89; RESP 16; TEMP 98.1
--- NOTE | 2022-08-30 13:06 | P.PN ---
Subjective Progress Note Date: 08/30/22 I am seeing this patient in new consultation today 08/27/2022 for progressive dyspnea and persistent nonproductive cough. Patient is a 62-year-old male with past medical history significant for hypertension, GERD, osteoarthritis. Patient presented to the emergency room yesterday afternoon complaining of progressively worsening shortness of breath and a nonproductive cough that reportedly started approximately 5-6 days ago. Patient did go to his primary care provider Dr. Mabry on July for similar complaints. The patient was given a combination of Spiriva and Symbicort and sent home. There was also Stiolto along with his other inhalers. The patient did have some old azithromycin that was prescribed to him back in February,, and he did take 2 tablets before coming into the emergency room yesterday afternoon. He denies any history of asthma or COPD. He denies any smoking history. He denies any sick contacts. He denies fevers, chills, chest pain, hemoptysis. Patient is currently lying in bed, on 2 L/m nasal cannula, in no acute distress. He is oxygenating at 99%, and this could probably be weaned off. Chest x-ray on arrival showed mild right-sided diaphragmatic elevation, linear atelectasis at the right medial lung base, and chronic pleural/parenchymal density of the left lower lobe. CT of the soft tissue of the neck with contrast was ordered because of subjective feeling of throat tightness and hoarse voice, which showed a narrowed airway of the nasopharynx secondary to enlargement of the adenoids with a patent oropharynx. Patient also reports ongoing intermittent headaches and blurred vision, and a follow-up brain CTA was ordered. CBC on arrival shows an RBC count of 8.4, hemoglobin 18.8, hematocrit 57.4, platelets 238. Shows sodium 137, potassium 4.1, chloride 105, serum bicarb 18, BUN 11, creatinine 1.29, glucose 108. Normal saline is infusing at 40 mL per hour. Lactic acid level was 1.9. Troponins were low. NT proBNP 789. Negative for influenza, RSV, COVID-19. Patient is currently receiving a combination of DuoNeb's, Pulmicort, and IV Solu-Medrol. He is afebrile. Vital signs are stable. The patient is seen today 08/28/2022 in follow-up on the regular medical floor. He is currently sitting up in bed. Awake and alert in no acute distress. He is maintaining good O2 saturations in the 90s on 2 L/m per nasal cannula. Normal finger 130 ML's per hour. Computed tomography scan of the chest revealed some atelectasis at the right lower lobe. Pro-calcitonin was 0.09. Suspect tracheobronchitis. Ultrasound of the kidneys revealed no evidence of hydronephrosis. No nephrolithiasis. Simple renal cyst seen bilaterally. White count 12.3. Hemoglobin 15.9. Platelets 257. Sodium 138. Potassium 3.9. Bicarb 20. BUN 19. Creatinine 1.52. Urinalysis negative. The patient is refusing bronchodilators. He is on Lovenox for DVT prophylaxis. The patient is seen today 08/29/2022 in follow-up on the regular medical floor. He is currently sitting up in a chair at the bedside. Awake and alert in no acute distress. He is currently maintaining O2 saturations in the upper 90s on 2 L/m per nasal cannula. Afebrile. Hemodynamically stable. Computed tomography scan of the brain revealed no acute intracranial process. CT alesia ogram of the head revealed no evidence of high-grade stenosis or intracranial aneurysm. A flexible nasopharyngeal laryngoscope was performed yesterday by ENT and he was found to have evidence of nasopharyngitis, laryngitis and tracheitis. Pro-calcitonin was 0.09. He is continued on Omnicef and a prednisone taper. The patient is seen today 08/30/2022 in follow-up on the regular medical floor. He is currently up ambulating in his room. Awake and alert in no acute distress. Maintaining good O2 saturations in the 90s on room air. No worsening shortness of breath, cough or congestion. No new labs today. He is continued on antibiotics and bronchodilators. Objective - Vital Signs Vital signs: Vital Signs Temp 98.1 F 08/30/22 08:02 Pulse 92 08/30/22 09:14 Resp 16 08/30/22 08:02 BP 151/82 08/30/22 08:02 Pulse Ox 100 08/30/22 09:02 FiO2 Intake & Output 08/29/22 08/30/22 08/30/22 18:59 06:59 18:59 Other: Voiding Method Toilet Toilet # Voids 3 1 - Exam GENERAL EXAM: Alert, very pleasant 62-year-old male, ambulating in the room, on room air, comfortable in no apparent distress. HEAD: Normocephalic and atraumatic EYES: Normal reaction of pupils, equal size. NOSE: Clear with pink turbinates. THROAT: No erythema or exudates. NECK: No masses, no JVD. CHEST: No chest wall deformity. LUNGS: Equal air entry with no crackles, wheeze, rhonchi or dullness. CVS: S1 and S2 normal with no audible murmur, regular rhythm. No extra heart sounds ABDOMEN: No hepatosplenomegaly, active bowel sounds, no guarding or rigidity. SPINE: No scoliosis or deformity SKIN: No rashes CENTRAL NERVOUS SYSTEM: No focal deficits, tone is normal in all 4 extremities. EXTREMITIES: There is no peripheral edema, clubbing, or cyanosis. Peripheral pulses are intact. - Labs CBC & Chem 7: 08/28/22 05:50 08/28/22 05:50 Assessment and Plan Assessment: Acute hypoxemic respiratory failure, recovered and currently on room air, possibly secondary to acute bronchitis. Chest x-ray on arrival did not reveal any acute developing infiltrates or pneumonia. It did show mild right-sided diaphragmatic elevation, linear atelectasis at the right medial lung base, and chronic pleural/parenchymal density of the left lower lobe. Negative for influenza, RSV, COVID-19. Pro-calcitonin negative. Computed tomography scan of the chest revealed atelectatic changes of the right lung base. ENT did perform laryngoscope and the patient was found to have evidence of nasopharyngitis, l aryngitis, tracheitis Acute on chronic headaches. Computed tomography scan of the brain revealed no acute intracranial process. CT angiogram revealed no evidence of high-grade stenosis or intracranial aneurysm. Essential hypertension Acute kidney injury, creatinine 1.52. Ultrasound reveals no hydronephrosis. No nephrolithiasis. Polycythemia GERD without esophagitis Osteoarthritis Denies smoking history Plan: The patient was seen and evaluated Medications reviewed Stable and on room air Cleared for discharge from the pulmonary standpoint I have personally seen and examined the patient, performed the documentation and the assessment and plan as written. Number of minutes spent on the visit: 10.
== END 2022-08-30 11:00 | disposition home or self-care (01) ==
LOC: EC 13:46 → 6NMEDSUR 18:16
PROVIDERS: ADMIT Family Medicine; ATTEND Family Medicine
DX: J96.01 Acute respiratory failure with hypoxia (principal); J04.0 Acute laryngitis; J04.10 Acute tracheitis without obstruction; J34.2 Deviated nasal septum; R68.89 Other general symptoms and signs; J98.11 Atelectasis; I10 Essential (primary) hypertension; D75.1 Secondary polycythemia; K21.9 Gastro-esophageal reflux disease without esophagitis; M19.90 Unspecified osteoarthritis, unspecified site; Z98.890 Other specified postprocedural states; J35.2 Hypertrophy of adenoids; R51.9 Headache, unspecified; R94.4 Abnormal results of kidney function studies; F41.9 Anxiety disorder, unspecified; F43.0 Acute stress reaction; F48.8 Other specified nonpsychotic mental disorders; Z79.890 Hormone replacement therapy; Z79.51 Long term (current) use of inhaled steroids; Z79.899 Other long term (current) drug therapy; Z88.2 Allergy status to sulfonamides
CPT/HCPCS: 96376 ×3; 96361; 96375 ×2; 96374; 99285; 36415; 94640 ×10; 94760 ×3; 93005; 85379; 83880; 80053 ×2; 80048; 83605; 84484 ×2; 85025 ×3; 85610; 85730; 81003; 82668; 84145; 87636; 74230; 71046; 76770; 70496; 70491; 70470; 71250; 31575; G0378 ×5; J2920; J2930; J1650 ×3; J1885; J7512 ×3; J1170; Q9967 ×2

== ENCOUNTER → 2023-03-24 | Outpatient (CLI) | payer OTHER ==
--- NOTE | 2023-03-24 10:22 | FL ---
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 15 sec fluoro time. .951.59 DAP. FINDINGS: Fluoroscopic sniff test was performed. There is elevation of the right hemidiaphragm. There is no evidence for paradoxical motion of the hemidiaphragms upon sniffing. IMPRESSION: Elevation right hemidiaphragm without evidence of paralysis at this time.
== END | disposition home or self-care (01) ==
LOC: RADUSWWP 09:24
PROVIDERS: ATTEND Internal Medicine Critical Care Medicine
DX: J98.6 Disorders of diaphragm (principal)
CPT/HCPCS: 76000